=== PATIENT | female | born 1975 | race Caucasian/White ===

== ENCOUNTER → 2017-02-01 | Outpatient (CLI) | payer OTHER ==
--- NOTE | 2017-02-01 16:39 | PN ---
DATE OF SERVICE: 02/01/2017 41-year-old lady who has been followed in the sleep center for treatment of obstructive sleep apnea-hypopnea syndrome. Recently patient had some problem related to the pressure and she did not use machine for the last months. I reviewed results of her previous sleep studies and it was done about 2 years ago. At that time, the effective pressure at 9 cm of water was prescribed to the patient, but lower pressure like ( ) showed that it was effective. I checked patient's CPAP unit. [place] Sleepiness Scale today is 12. MEDICATIONS: Baclofen, amitriptyline, Fenofibrate, pravastatin, metformin, omeprazole, citalopram, Claritin, [place]. During physical exam, the patient in no distress. VITAL SIGNS: BP 152/92, HR 106, RR 16. Height 5 feet 4-1/2 inches. Weight 255. BMI 43. Temperature 98.0. Oxygen saturation at room air 97%. HEENT: PERRLA, EOMI, Evaluation of the oropharynx showed tongue protrudes midline. NECK: Supple. No JVD, Thyroid is not palpable. LUNGS: Clear to percussion and to auscultation. Good air exchange. No wheezing or rhonchi. HEART: S1, S2 regular. No murmurs, gallops, or rubs. ABDOMEN: Obese. Soft and nontender. Bowel sounds are present. No organomegaly appreciated. CODING QUALITY ANALYST: Awake, alert, and oriented x3. Cranial nerves 2 to 7 intact. There is no fasciculation or atrophy noted. No focal deficits observed. IMPRESSION: 1. Obstructive sleep apnea-hypopnea syndrome. Patient described that she has recent difficulties with the machine at the present pressure. 2. Obesity. Patient lost 5 pounds since previous visit. 3. Hyperlipidemia. 4. History of thyroid nodule. 5. History of migraines. 6. Diabetes mellitus. 7. Acid reflux. 8. Depression. 9. Allergies. 10. Back pain. PLAN: 1. Continue treatment with CPAP every night for the whole night. 2. I adjusted pressure in patient's CPAP unit down to 8 cm of water. 3. Patient promised to follow recommendations while using her CPAP. 4. A prescription for all necessary CPAP supplies. 5. Losing weight. 6. No driving if feeling any sleepiness. Thank you very much for allowing me to participate in the management of your patient. Sincerely, Yunior Jiménez MD, PhD, FAASM Diplomat of [employer], Sleep Medicine Board by [employer] [employer] [facility] [place]
== END | disposition home or self-care (01) ==
LOC: SLEEP 13:10
PROVIDERS: ATTEND Internal Medicine
DX: G47.33 Obstructive sleep apnea (adult) (pediatric) (principal); E66.9 Obesity, unspecified; Z68.41 Body mass index [BMI] 40.0-44.9, adult; F32.9 Major depressive disorder, single episode, unspecified; E78.5 Hyperlipidemia, unspecified; K21.9 Gastro-esophageal reflux disease without esophagitis; M54.9 Dorsalgia, unspecified; E11.9 Type 2 diabetes mellitus without complications; Z79.899 Other long term (current) drug therapy; Z91.09 Other allergy status, other than to drugs and biological substances; Z79.84 Long term (current) use of oral hypoglycemic drugs

== ENCOUNTER 2017-06-12 18:37 | Emergency (ER) | payer OTHER ==
[2017-06-12] MEDS ORDERED: ORPHENADRINE 30 MG/ML 2 ML VIAL IVP STA (19:23)
[2017-06-12] MEDS ORDERED: METOCLOPRAMIDE 5 MG/ML 2 ML VIAL IVP STA (19:23)
[2017-06-12] MEDS ORDERED: KETOROLAC 30 MG/ML 1 ML VIAL IVP STA (19:23)
[2017-06-12] MEDS ORDERED: SODIUM CHLORIDE 0.9% 1,000 ML IV ONE (19:23)
--- NOTE | 2017-06-12 19:30 | ED ---
Headache HPI - General Chief Complaint: Headache Stated Complaint: severe migraine Time Seen by Provider: 06/12/17 19:06 Source: patient, RN notes reviewed Mode of arrival: ambulatory Limitations: no limitations - History of Present Illness Initial Comments: 42-year-old female presents emergency Department chief complaint migraine headache. Patient has a history of migraines concerned with a migraine headache last night. Patient states that has not alleviated with her medications at home. Patient states she does have come the hospital often for her headaches. Patient states is a diffuse headache and she's had headaches like this in the past. She denies any focal weakness. Patient developed nausea vomiting today. Patient denies fever, chills, neck stiffness, chest pain or shortness breath. Patient states that she tried [place], ibuprofen and muscle relaxer earlier today with nothing recent. - Related Data Home Medications Medication Instructions Recorded Confirmed Baclofen [Lioresal] 10 - 20 mg PO BID PRN 03/06/14 06/12/17 Citalopram Hydrobromide [CeleXA] 40 mg PO DAILY 03/06/14 06/12/17 Fenofibrate [Lofibra] 160 mg PO DAILY 03/06/14 06/12/17 Levothyroxine Sodium [Levoxyl] 75 mcg PO DAILY 03/06/14 06/12/17 Loratadine [Claritin] 10 mg PO DAILY 07/05/15 06/12/17 Cholecalciferol [Vitamin D3] 5,000 unit PO DAILY 06/12/17 06/12/17 Ferrous Sulfate [Feosol] 325 mg PO DAILY 06/12/17 06/12/17 Ibuprofen [Motrin] 200 - 400 mg PO Q6HR PRN 06/12/17 06/12/17 L.acidoph,Paracasei, B.lactis 1 cap PO DAILY 06/12/17 06/12/17 [Probiotic] Omeprazole [PriLOSEC] 40 mg PO DAILY 06/12/17 06/12/17 Pravastatin Sodium [Pravachol] 10 mg PO HS 06/12/17 06/12/17 metFORMIN HCL [Glucophage] 500 mg PO BID 06/12/17 06/12/17 Allergies Allergy/AdvReac Type Severity Reaction Status Date / Time No Known Allergies Allergy Verified 06/12/17 19:52 Review of Systems ROS Statement: Those systems with pertinent positive or pertinent negative responses have been documented in the HPI. ROS Other: All systems not noted in ROS Statement are negative. Past Medical History Past Medical History: Asthma, Diabetes Mellitus, GERD/Reflux, Renal Disease, Sleep Apnea/CPAP/BIPAP, Thyroid Disorder Additional Past Medical History / Comment(s): Migraines; vertigo associated with migraines History of Any Multi-Drug Resistant Organisms: None Reported Past Surgical History: Section, Cholecystectomy, Hysterectomy Additional Past Surgical History / Comment(s): EGD which showed hiatal hernia, colonoscopy which was normal, 2 C-sections, bilateral oophorectomy Past Anesthesia/Blood Transfusion Reactions: No Reported Reaction Additional Past Anesthesia/Blood Transfusion Reaction / Comment(s): Pt has never had a blood transfusion. Past Psychological History: Anxiety, Depression Smoking Status: Former smoker Past Alcohol Use History: None Reported Past Drug Use History: None Reported - Past Family History Father Additional Family Medical History / Comment(s): Father had MV replacement. He has high triglycerides. His mother had breast cancer. Mother Family Medical History: Diabetes Mellitus Additional Family Medical History / Comment(s): Mother has anxiety. General Exam Limitations: no limitations General appearance: alert, in no apparent distress Head exam: Present: atraumatic, normocephalic, normal inspection Eye exam: Present: normal appearance, PERRL, EOMI. Absent: scleral icterus, conjunctival injection, periorbital swelling ENT exam: Present: normal exam, normal oropharynx, mucous membranes moist, TM's normal bilaterally, normal external ear exam Neck exam: Present: normal inspection, full ROM. Absent: tenderness, meningismus, lymphadenopathy Respiratory exam: Present: normal lung sounds bilaterally. Absent: respiratory distress, wheezes, rales, rhonchi, stridor Cardiovascular Exam: Present: regular rate, normal rhythm, normal heart sounds. Absent: systolic murmur, diastolic murmur, rubs, gallop, clicks Extremities exam: Present: normal inspection, full ROM, normal capillary refill. Absent: tenderness, pedal edema, joint swelling, calf tenderness Neurological exam: Present: alert, oriented X3, CN II-XII intact, reflexes normal. Absent: motor sensory deficit Skin exam: Present: warm, dry, intact, normal color. Absent: rash Course Vital Signs 06/12/17 18:46 Temperature 96.8 F L Pulse Rate 73 Respiratory 17 Rate Blood Pressure 122/81 O2 Sat by Pulse 97 Oximetry - Reevaluation(s) Reevaluation #1: 06/12/17 20:20 Patient was reevaluated at this time. Patient's headache has essentially resolved. Patient's neuro exam is within normal wants no acute abnormality's. Medical Decision Making - Medical Decision Making 42-year-old female presented emergency department for headache. Patient's headache has resolved as medications. Patient has a normal neuro exam. Patient will be discharged return parameters were discussed. Disposition Clinical Impression: Migraine Disposition: HOME SELF-CARE Condition: Stable Instructions: Acute Headache (ED) Additional Instructions: Please return to the Emergency Department if symptoms worsen or any other concerns. Referrals: Luca Chandler MD [Primary Care Provider] - 1-2 days Time of Disposition: 20:21
[2017-06-12 20:37] VITALS: BP 134/66; PULSE 71; RESP 16; TEMP 97.7
== END 2017-06-12 20:45 | disposition home or self-care (01) ==
LOC: EC 18:37
DX: G43.909 Migraine, unspecified, not intractable, without status migrainosus (principal); E11.9 Type 2 diabetes mellitus without complications; K21.9 Gastro-esophageal reflux disease without esophagitis; F41.9 Anxiety disorder, unspecified; E07.9 Disorder of thyroid, unspecified; F32.9 Major depressive disorder, single episode, unspecified; G47.30 Sleep apnea, unspecified; Z99.89 Dependence on other enabling machines and devices; Z87.891 Personal history of nicotine dependence; Z79.84 Long term (current) use of oral hypoglycemic drugs; Z79.899 Other long term (current) drug therapy
CPT/HCPCS: 99283; 96374; 96375 ×2; 96361; J2360; J2765; J1885

== ENCOUNTER 2017-07-10 07:28 | Day surgery (SDC) | payer OTHER ==
[2017-07-03 16:00] VITALS: BMI 44.9
[~2017-07-10 07:28] MED LIST: DEXAMETHASONE SOD PHOSPHATE 10 MG/ML 1 ML VIAL IV ONE; HEPARIN SODIUM,PORCINE 5,000 UNIT/ML 1 ML VIAL SQ ONE; HYDROmorphone 0.5 MG/0.5 ML SYRINGE IVP PRN; LACTATED RINGERS 1,000 ML IV SCH; MIDAZOLAM 2 MG/2 ML VIAL IV PRN; ONDANSETRON 4 MG/2 ML VIAL IVP ONE; Pre Op ABX Message 1 EACH MISC MISCELLANE ONE
[2017-07-10] MEDS ORDERED: LIDOCAINE 1% 20 ML VIAL (10MG/ML) FOR IV START INTRADERMA ONE (07:50)
[2017-07-10 07:54] VITALS: TEMP 97.7
[2017-07-10 07:56] LABS: Glucose,Whole Blood 119 mg/dL (75-99)
[2017-07-10] MEDS ORDERED: fentaNYL (PF) 50 MCG/ML 2 ML AMP IV ONE (08:08)
[2017-07-10] MEDS ORDERED: METOCLOPRAMIDE 5 MG/ML 2 ML VIAL IVP ONE (08:09)
[2017-07-10] MEDS ORDERED: PROPOFOL 10 MG/ML 20 ML VIAL IV ONE (08:38)
[2017-07-10] MEDS ORDERED: MIDAZOLAM 2 MG/2 ML VIAL ONE (08:38)
[2017-07-10] MEDS ORDERED: fentaNYL (PF) 50 MCG/ML 2 ML AMP ONE (08:38)
[2017-07-10] MEDS ORDERED: BUPIVACAIN-EPI 0.5%-1:200,000 30 ML VIAL SQ ONE ×2 (08:50)
[2017-07-10] MEDS ORDERED: SODIUM CHLORIDE 0.9% 50 ML with CLINDAMYCIN 900 MG IV ONE ×4 (08:54)
[2017-07-10 09:32] VITALS: PULSE 86; RESP 16
--- NOTE | 2017-07-10 09:39 | P.OP ---
Date of Procedure: 07/10/17 Preoperative Diagnosis: Right thigh sebaceous cyst Postoperative Diagnosis: Right thigh sebaceous cyst Procedure(s) Performed: Excision of right thigh sebaceous cyst Anesthesia: local Surgeon: Shawn Marlow Pathology: other Condition: stable Description of Procedure: Patient was seen and examined the preop holding area and marked. Questions were answered and informed consent obtained. She was taken to the operating room and placed in supine position and given IV sedation per anesthesia after appropriate timeout. . He was prepped and draped in the usual sterile surgical fashion after infiltrating local anesthesia and incision was made that was elliptical across the cyst in the lines of [place]. Given the skin and subcutaneous tissue with the electrocautery completed shelling out the cyst. This is measured 2 x 2 by 1.5 cm and extended it is into the subcutaneous tissue. Subcu tissue was closed with a single stitch of 3-0 Vicryl. Skin was closed 4-0 Monocryl and Dermabond was applied patient WELL and was taken to recovery in stable condition after she woke up. There were complications
[2017-07-10 09:42] LABS: Glucose,Whole Blood 161 mg/dL (75-99)
[2017-07-10 10:13] VITALS: BP 129/77
== END 2017-07-10 10:16 | disposition home or self-care (01) ==
LOC: OR 07:28
PROVIDERS: ATTEND Surgery
DX: D23.9 Other benign neoplasm of skin, unspecified (principal); Z79.84 Long term (current) use of oral hypoglycemic drugs; E11.9 Type 2 diabetes mellitus without complications; E03.9 Hypothyroidism, unspecified; Z68.42 Body mass index [BMI] 45.0-49.9, adult; E66.9 Obesity, unspecified; Z87.891 Personal history of nicotine dependence; F32.9 Major depressive disorder, single episode, unspecified; E78.5 Hyperlipidemia, unspecified; Z79.899 Other long term (current) drug therapy; Z88.8 Allergy status to other drugs, medicaments and biological substances
CPT/HCPCS: 11403; 88305; J2250; J1644; J1100; J2765; J3010; J2704

== ENCOUNTER 2018-08-12 21:03 | Observation (INO) | payer OTHER ==
[2018-08-12] MEDS ORDERED: MORPHINE SULFATE 4 MG/ML SYRINGE IVP STA (22:45)
[2018-08-12 23:09] LABS: Basophils # (A) 0.1 k/uL (0-0.2); Basophils % (A) 1 %; Eosinophils # (A) 0.2 k/uL (0-0.7); Eosinophils % (A) 2 %; HCT 34.3 % (34.0-46.0); HGB 11.7 gm/dL (11.4-16.0); Lymphocytes # (A) 2.4 k/uL (1.0-4.8); Lymphocytes % (A) 25 %; MCH 29.7 pg (25.0-35.0); MCHC 34.2 g/dL (31.0-37.0); MCV 86.9 fL (80.0-100.0); Mean Platelet Volume 7.9; Monocytes # (A) 0.5 k/uL (0-1.0); Monocytes % (A) 5 %; Neutrophils # (A) 6.2 k/uL (1.3-7.7); Neutrophils % (A) 66 %; Platelet Count 243 k/uL (150-450); Poikilocytosis Slight; RBC 3.95 m/uL (3.80-5.40); RDW 14.2 % (11.5-15.5); WBC 9.5 k/uL (3.8-10.6)
[2018-08-12 23:19] LABS: Amorphous Sediment,Urine Rare /hpf; Appearance,Urine Cloudy (Clear); Bacteria,Urine Rare /hpf; Bilirubin,Urine Negative (Negative); Blood,Urine Moderate (Negative); Color,Urine Yellow; Glucose,Urine (UA) Negative (Negative); Ketones,Urine Negative (Negative); Leukocyte Esterase,Urine Negative (Negative); Mucus,Urine Rare /hpf; Nitrite,Urine Negative (Negative); PH, Urine 6.5 (5.0-8.0); Protein,Urine Negative (Negative); RBC,Urine 13 /hpf (0-5); Specific Gravity,Urine 1.015 (1.001-1.035); Squamous Epithelial Cell,Urine 5 /hpf (0-4); WBC,Urine 3 /hpf (0-5)
[2018-08-12 23:20] LABS: Calcium 9.6 mg/dL (8.4-10.2); Potassium 4.3 mmol/L (3.5-5.1); Total Bilirubin 0.6 mg/dL (0.2-1.3); Total Protein 7.3 g/dL (6.3-8.2)
--- NOTE | 2018-08-12 23:26 | ED ---
Abdominal Pain HPI - General Chief Complaint: Abdominal Pain Stated Complaint: kidney stone pain Time Seen by Provider: 08/12/18 22:17 Source: patient Mode of arrival: ambulatory Limitations: no limitations - History of Present Illness Initial Comments: And she is a 43-year-old female who returns to the ER today for reevaluation of right-sided flank pain. Patient was seen and evaluated on emergency department last week and diagnosed with a 5-5-1/2 mm right ureteral stone. Patient mild hydronephrosis at that time, she was discharged home on Flomax and [place]. Patient reports she's been compliant with his medications but has persistent pain and associated nausea despite taking Zofran. Patient was seen by her primary care today and received IM injection of Toradol. She reports that after injection she was able to sleep for approximately 2 hours with the pain persisted and she was advised to come to the ER for any persistence or worsening of pain. Patient name fevers, chills, vomiting, chest pain or shortness of breath. She denies any gross hematuria or foul odor to the urine. She describes her pain as an 8 out of 10 in intensity stabbing and radiating from the right lower pelvis and of the flank. - Related Data Home Medications Medication Instructions Recorded Confirmed Baclofen [Lioresal] 10 - 20 mg PO BID PRN 03/06/14 08/09/18 Citalopram Hydrobromide [CeleXA] 40 mg PO DAILY 03/06/14 08/09/18 Fenofibrate [Lofibra] 160 mg PO HS 03/06/14 08/09/18 Levothyroxine Sodium [Levoxyl] 75 mcg PO DAILY 03/06/14 08/09/18 Loratadine [Claritin] 10 mg PO DAILY 07/05/15 08/09/18 Omeprazole [PriLOSEC] 20 mg PO DAILY 06/12/17 08/09/18 Cholecalciferol (Vitamin D3) 10,000 unit PO DAILY 08/09/18 08/09/18 [Vitamin D3] Topiramate [Topamax] 100 mg PO DAILY PRN 08/09/18 08/09/18 Topiramate [Topamax] 100 mg PO HS 08/09/18 08/09/18 Previous Rx's Medication Instructions Recorded Hydrocodone/Acetaminophen [[place] 1 tab PO Q6HR PRN #12 tab 08/09/18 5-325] Ketorolac [Toradol] 10 mg PO Q8HR #15 tab 08/09/18 Metoclopramide [Reglan] 10 mg PO TID PRN #15 tab 08/09/18 Tamsulosin [Flomax] 0.4 mg PO DAILY #7 cap 08/09/18 Allergies Allergy/AdvReac Type Severity Reaction Status Date / Time niacin Allergy red and Verified 08/12/18 21:20 hot skin ondansetron [From Zofran] Allergy Unknown Verified 08/12/18 21:20 Review of Systems ROS Statement: Those systems with pertinent positive or pertinent negative responses have been documented in the HPI. ROS Other: All systems not noted in ROS Statement are negative. Past Medical History Past Medical History: Asthma, Diabetes Mellitus, Fibromyalgia, GERD/Reflux, Hyperlipidemia, Sleep Apnea/CPAP/BIPAP, Thyroid Disorder Additional Past Medical History / Comment(s): Migraines; vertigo associated with migraines, hiatal hernia, History of Any Multi-Drug Resistant Organisms: None Reported Past Surgical History: Section, Cholecystectomy, Hysterectomy, Uterine Ablation Additional Past Surgical History / Comment(s): bilateral oophorectomy Past Anesthesia/Blood Transfusion Reactions: Motion Sickness Additional Past Anesthesia/Blood Transfusion Reaction / Comment(s): . Past Psychological History: Depression Smoking Status: Former smoker Past Alcohol Use History: Rare Past Drug Use History: None Reported - Past Family History Father Additional Family Medical History / Comment(s): Father had MV replacement. He has high triglycerides. His mother had breast cancer. Mother Family Medical History: No Reported History Additional Family Medical History / Comment(s): Mother has anxiety. General Exam - General Exam Comments Initial Comments: Physical Exam GENERAL: Patient is well-developed and well-nourished. Patient is nontoxic and well- hydrated and is in no distress. HENT: Normocephalic, Atraumatic. EYES: PERRL, EOMI PULMONARY: Unlabored respirations. No audible rales rhonchi or wheezing was noted. CARDIOVASCULAR: There is a regular rate and rhythm without any murmurs gallops or rubs. ABDOMEN: Soft and nontender with normal bowel sounds. Right-sided flank pain SKIN: Skin is clear with no lesions or rashes and otherwise unremarkable. : Deferred NEUROLOGIC: Patient is alert and oriented x3. Moving all extremities spontaneously MUSCULOSKELETAL: Normal extremities with adequate strength and full range of motion. No lower extremity swelling or edema. No calf tenderness. PSYCHIATRIC: Normal psychiatric evaluation. Limitations: no limitations Limitations: no limitations Course Vital Signs 08/12/18 08/13/18 21:17 00:25 Temperature 98.1 F Pulse Rate 71 60 Respiratory 18 19 Rate Blood Pressure 111/71 114/56 O2 Sat by Pulse 98 100 Oximetry Medical Decision Making - Medical Decision Making The patient was seen and evaluated history is obtained from the patient and review of medical record This is a patient with a known 5 mm midureteral stone returning to the ER for pain that is not managed by by mouth medications as well as IM Toradol. Patient does have associated nausea but no vomiting, she has been tolerating her home medications. Labs and imaging were ordered, at this time I don't feel there is any indication for repeat computed tomography scan I will pursue a ultrasound Labs reveal an acute kidney injury with an increased creatinine nearly double her baseline as well as increased BUN Urinalysis with no signs of infection, gross hematuria noted Ultrasound does reveal mild hydronephrosis not significantly worsened previous Patient with transient improvement in her pain with morphine. Requesting repeat doses again stating her pain is an 8 out of 10 Patient care was discussed with Dr. Moscoso urology on-call who agrees with the plan for admission for pain management. - Lab Data Result diagrams: 08/12/18 22:45 08/12/18 22:45 Lab Results 08/12/18 08/12/18 08/12/18 Range/Units 22:45 22:45 22:45 WBC 9.5 (3.8-10.6) k/uL RBC 3.95 (3.80-5.40) m/uL Hgb 11.7 (11.4-16.0) gm/dL Hct 34.3 (34.0-46.0) % MCV 86.9 (80.0-100.0) fL MCH 29.7 (25.0-35.0) pg MCHC 34.2 (31.0-37.0) g/dL RDW 14.2 (11.5-15.5) % Plt Count 243 (150-450) k/uL Neutrophils % 66 % Lymphocytes % 25 % Monocytes % 5 % Eosinophils % 2 % Basophils % 1 % Neutrophils # 6.2 (1.3-7.7) k/uL Lymphocytes # 2.4 (1.0-4.8) k/uL Monocytes # 0.5 (0-1.0) k/uL Eosinophils # 0.2 (0-0.7) k/uL Basophils # 0.1 (0-0.2) k/uL Poikilocytosis Slight Sodium 142 (137-145) mmol/L Potassium 4.3 (3.5-5.1) mmol/L Chloride 109 H (98-107) mmol/L Carbon Dioxide 24 (22-30) mmol/L Anion Gap 9 mmol/L BUN 30 H (7-17) mg/dL Creatinine 1.14 H (0.52-1.04) mg/dL Est GFR (CKD-EPI)AfAm 68 (>60 ml/min/1.73 sqM) Est GFR (CKD-EPI)NonAf 59 (>60 ml/min/1.73 sqM) Glucose 89 (74-99) mg/dL Calcium 9.6 (8.4-10.2) mg/dL Total Bilirubin 0.6 (0.2-1.3) mg/dL AST 39 H (14-36) U/L ALT 59 H (9-52) U/L Alkaline Phosphatase 79 (38-126) U/L Total Protein 7.3 (6.3-8.2) g/dL Albumin 4.0 (3.5-5.0) g/dL Lipase 47 (23-300) U/L Urine Color Yellow Urine Appearance Cloudy H (Clear) Urine pH 6.5 (5.0-8.0) Ur Specific [place] 1.015 (1.001-1.035) Urine Protein Negative (Negative) Urine Glucose (UA) Negative (Negative) Urine Ketones Negative (Negative) Urine Blood Moderate H (Negative) Urine Nitrite Negative (Negative) Urine Bilirubin Negative (Negative) Urine Urobilinogen 2.0 (<2.0) mg/dL Ur Leukocyte Esterase Negative (Negative) Urine RBC 13 H (0-5) /hpf Urine WBC 3 (0-5) /hpf Ur Squamous Epith Cells 5 H (0-4) /hpf Amorphous Sediment Rare H (None) /hpf Urine Bacteria Rare H (None) /hpf Urine Mucus Rare H (None) /hpf Disposition Clinical Impression: Urinary tract obstruction by kidney stone, Flank pain Disposition: ADMITTED IP TO THIS HOSP Condition: Stable Referrals: Luca Chandler MD [Primary Care Provider] - 1-2 days
[2018-08-12] MEDS ORDERED: SODIUM CHLORIDE 0.9% 1,000 ML IV ONE (23:38)
--- NOTE | 2018-08-12 23:38 | XR ---
EXAMINATION TYPE: XR KUB DATE OF EXAM: 08/12/2018 COMPARISON: 08/09/2018 HISTORY: Right lower quadrant pain TECHNIQUE: 2 views upright FINDINGS: There are clips from cholecystectomy. There is no sign of intestinal obstruction or pneumop eritoneum. Fecal pattern is normal. Lung bases are clear. IMPRESSION: Nonacute abdomen. No change.
--- NOTE | 2018-08-13 00:44 | US ---
EXAMINATION TYPE: US kidneys/renal and bladder DATE OF EXAM: 08/13/2018 COMPARISON: NONE CLINICAL HISTORY: Pain. Pain HX of kidney stones. EXAM MEASUREMENTS: Right Kidney: 11.1 x 6.4 5.8 cm Left Kidney: 12.7 x 5.3 x 4.9 cm Right Kidney: Echogenic foci seen with mild hydronephrosis. Left Kidney: Echogenic area seen mid pole no hydronephrosis seen. Bladder: Anechoic not fully distended. Bilateral Jets seen: Yes IMPRESSION: There is right-sided hydronephrosis. There are ureteral jets in the urinary bladder and I do not susp ect a significant obstruction. No renal atrophy. There are probably bilateral renal small calculi. Ri ght-sided hydronephrosis unchanged compared to CT scan 08/09/2018.
[2018-08-13] MEDS ORDERED: MORPHINE SULFATE 4 MG/ML SYRINGE IVP STA (01:39)
[2018-08-13] MEDS ORDERED: NALOXONE 0.4 MG/ML 1 ML VIAL IV PRN (02:08)
[2018-08-13] MEDS: SODIUM CHLORIDE 0.9% 1,000 ML IV SCH ×2 (02:38→12:41)
[2018-08-13] MEDS: MORPHINE SULFATE 4 MG/ML SYRINGE IV PRN ×2 (04:55→09:28)
[2018-08-13] MEDS ORDERED: LEVOTHYROXINE 75 MCG TAB PO SCH (06:30)
--- NOTE | 2018-08-13 07:22 | P.GSHP ---
History of Present Illness H&P Date: 08/13/18 The patient is a 43-year-old female who since last has been having problems with a right ureteral stone. She was in the emergency room last weekend where a 5-6 mm midureteral stone was identified. The pain persisted and she came back to the emergency room last night. The pain was not controlled so she was admitted to the hospital. She is still having pain this morning. She did have a stone many years ago. The computed tomography scan also shows a right and left renal stone both small. Her some mild hydronephrosis. Urine is not infected. There is no fever or chills. - Constitutional Constitutional: Reports chronic headaches - Genitourinary (Female) Genitourinary: Reports as per HPI Past Medical History Past Medical History: Asthma, Diabetes Mellitus, Fibromyalgia, GERD/Reflux, Hyperlipidemia, Sleep Apnea/CPAP/BIPAP, Thyroid Disorder Additional Past Medical History / Comment(s): Migraines; vertigo associated with migraines, hiatal hernia, History of Any Multi-Drug Resistant Organisms: None Reported Past Surgical History: Section, Cholecystectomy, Hysterectomy, Uterine Ablation Additional Past Surgical History / Comment(s): bilateral oophorectomy Past Anesthesia/Blood Transfusion Reactions: Motion Sickness Additional Past Anesthesia/Blood Transfusion Reaction / Comment(s): . Past Psychological History: Depression Additional Psychological History / Comment(s): . Smoking Status: Former smoker Past Alcohol Use History: Rare Additional Past Alcohol Use History / Comment(s): quit smoking 1994, smoked for 5 yrs, 1 PPD Past Drug Use History: None Reported - Past Family History Father Additional Family Medical History / Comment(s): Father had MV replacement. He has high triglycerides. His mother had breast cancer. Mother Family Medical History: No Reported History Additional Family Medical History / Comment(s): Mother has anxiety. Medications and Allergies Home Medications Medication Instructions Recorded Confirmed Type Baclofen [Lioresal] 10 - 20 mg PO BID PRN 03/06/14 08/13/18 History Citalopram Hydrobromide [CeleXA] 20 mg PO DAILY 03/06/14 08/13/18 History Fenofibrate [Lofibra] 160 mg PO HS 03/06/14 08/13/18 History Levothyroxine Sodium [Levoxyl] 75 mcg PO DAILY 03/06/14 08/13/18 History Omeprazole [PriLOSEC] 20 mg PO DAILY 06/12/17 08/13/18 History Cholecalciferol (Vitamin D3) 10,000 unit PO DAILY 08/09/18 08/13/18 History [Vitamin D3] Tamsulosin [Flomax] 0.4 mg PO DAILY #7 cap 08/09/18 08/13/18 Rx Topiramate [Topamax] 100 mg PO DAILY PRN 08/09/18 08/13/18 History Topiramate [Topamax] 100 mg PO HS 08/09/18 08/13/18 History Allergies Allergy/AdvReac Type Severity Reaction Status Date / Time niacin Allergy red and Verified 08/12/18 21:20 hot skin ondansetron [From Zofran] Allergy Unknown Verified 08/12/18 21:20 Surgical - Exam Vital Signs Temp Pulse Resp BP Pulse Ox 98.1 F 71 18 111/71 98 08/12/18 21:17 08/12/18 21:17 08/12/18 21:17 08/12/18 21:17 08/12/18 21:17 - General well developed, well nourished, obese - Eyes PERRL - ENT no hearing loss - Neck no masses, trachea midline - Respiratory normal expansion, normal respiratory effort - Cardiovascular Rhythm: regular - Abdomen Abdomen: tender - Integumentary no rash, no growths - Neurologic normal coordination, normal sensation - Musculoskeletal normal posture - Psychiatric oriented to time, oriented to person, oriented to place, speech is normal, memory intact Results - Labs 08/12/18 22:45 08/12/18 22:45 Abnormal Lab Results - Last 24 Hours (Table) 08/12/18 08/12/18 Range/Units 22:45 22:45 Chloride 109 H (98-107) mmol/L BUN 30 H (7-17) mg/dL Creatinine 1.14 H (0.52-1.04) mg/dL AST 39 H (14-36) U/L ALT 59 H (9-52) U/L Urine Appearance Cloudy H (Clear) Urine Blood Moderate H (Negative) Urine RBC 13 H (0-5) /hpf Ur Squamous Epith Cells 5 H (0-4) /hpf Amorphous Sediment Rare H (None) /hpf Urine Bacteria Rare H (None) /hpf Urine Mucus Rare H (None) /hpf Diabetes panel 08/12/18 Range/Units 22:45 Sodium 142 (137-145) mmol/L Potassium 4.3 (3.5-5.1) mmol/L Chloride 109 H (98-107) mmol/L Carbon Dioxide 24 (22-30) mmol/L BUN 30 H (7-17) mg/dL Creatinine 1.14 H (0.52-1.04) mg/dL Glucose 89 (74-99) mg/dL Calcium 9.6 (8.4-10.2) mg/dL AST 39 H (14-36) U/L ALT 59 H (9-52) U/L Alkaline Phosphatase 79 (38-126) U/L Total Protein 7.3 (6.3-8.2) g/dL Albumin 4.0 (3.5-5.0) g/dL Calcium panel 08/12/18 Range/Units 22:45 Calcium 9.6 (8.4-10.2) mg/dL Albumin 4.0 (3.5-5.0) g/dL Pituitary panel 08/12/18 Range/Units 22:45 Sodium 142 (137-145) mmol/L Potassium 4.3 (3.5-5.1) mmol/L Chloride 109 H (98-107) mmol/L Carbon Dioxide 24 (22-30) mmol/L BUN 30 H (7-17) mg/dL Creatinine 1.14 H (0.52-1.04) mg/dL Glucose 89 (74-99) mg/dL Calcium 9.6 (8.4-10.2) mg/dL Adrenal panel 08/12/18 Range/Units 22:45 Sodium 142 (137-145) mmol/L Potassium 4.3 (3.5-5.1) mmol/L Chloride 109 H (98-107) mmol/L Carbon Dioxide 24 (22-30) mmol/L BUN 30 H (7-17) mg/dL Creatinine 1.14 H (0.52-1.04) mg/dL Glucose 89 (74-99) mg/dL Calcium 9.6 (8.4-10.2) mg/dL Total Bilirubin 0.6 (0.2-1.3) mg/dL AST 39 H (14-36) U/L ALT 59 H (9-52) U/L Alkaline Phosphatase 79 (38-126) U/L Total Protein 7.3 (6.3-8.2) g/dL Albumin 4.0 (3.5-5.0) g/dL - Imaging CT scan - abdomen: report reviewed, image reviewed CT scan - pelvis: report reviewed, image reviewed Assessment and Plan Assessment: Impression: Right ureteral calculus of the obstruction and persistent pain. Chronic migraines, diabetes, reflux esophagitis, Recommendations: I discussed with the patient all the options including spontaneous passage in the variety of surgical approaches. The pain is bothersome enough that she wishes something to be done. She'll be set up for right ureteroscopy laser lithotripsy and probable stent. The risks and complications of an outlined. Be done later today.
[2018-08-13] MEDS ORDERED: TAMSULOSIN 0.4 MG CAP.ER.24H PO SCH (09:00)
[2018-08-13] MEDS ORDERED: IV FLUID CONTINUATION 900 ML IV ONE (14:21)
[2018-08-13] MEDS ORDERED: fentaNYL (PF) 50 MCG/ML 2 ML AMP IVP ONE (14:27)
[2018-08-13] MEDS ORDERED: DEXAMETHASONE SOD PHOS (MDV) 100 MG/10 ML VIAL ONE (15:00)
[2018-08-13] MEDS ORDERED: fentaNYL (PF) 50 MCG/ML 2 ML AMP ONE (15:00)
[2018-08-13] MEDS ORDERED: LIDOCAINE 1% INJ 10MG/ML (20 ML MDV) ONE (15:00)
[2018-08-13] MEDS ORDERED: MIDAZOLAM 2 MG/2 ML VIAL ONE (15:00)
[2018-08-13] MEDS ORDERED: PROPOFOL 10 MG/ML 20 ML VIAL IV ONE (15:00)
[2018-08-13] MEDS ORDERED: SUCCINYLCHOLINE CHLORIDE 100 MG/5 ML SYR IV ONE (15:00)
[2018-08-13] MEDS ORDERED: SODIUM CHLORIDE 0.9% 50 ML with ceFAZolin 2,000 MG IV ONE ×2 (15:12)
[2018-08-13] MEDS ORDERED: IOPAMIDOL-370 50ML BTL MISCELLANE ONE (15:21)
--- NOTE | 2018-08-13 15:48 | P.OP ---
Date of Procedure: 08/13/18 Preoperative Diagnosis: Right ureteral stone Postoperative Diagnosis: Same Procedure(s) Performed: Cystoscopy, right retrograde pyelogram, right ureteroscopy laser lithotripsy, 6 x 24 stent Anesthesia: LIZBETH Surgeon: Hima Miller Estimated Blood Loss (ml): 5 Pathology: other (Stone) Condition: stable Disposition: PACU Indications for Procedure: The patient is 43. For the last week she has been attempting to pass a ureteral stone. Lodged in the mid ureter and was admitted to the hospital for pain control. She is still having pain this morning and this afternoon and come for stone manipulation Description of Procedure: Patient is brought to the operating suite. She is given a successful general endotracheal anesthesia. She's placed lithotomy position with sterile prep and drape. A cystoscopy is performed. The the bladder mucosa is unremarkable. Ureteral orifices are normal. There is bloody discharge from the right ureteral orifice. Within a cone-tipped catheter right retrograde pyelogram performed. There is about an 8 mm stone in the distal ureter. I dilate the ureter with a cone-tipped catheter. I passed the semirigid scope up to the stone. With the 365 laser probe and 3-4 W of energy the stone was broken into multiple pieces and flushes out of the ureter. The ureters too edematous not to place a stent. An 035 wires and passed through the ureteroscope. Over the wires and passed a 6 x 24 double-J catheter that coils in the kidney and in the bladder. The bladder strain the stone fragments are removed and sent to pathology. The patient is awakened and returned recovery room in good condition. Blood loss minimal.
--- NOTE | 2018-08-13 15:49 | P.DS ---
Providers Date of admission: 08/13/18 02:08 Attending physician: Hima Miller Primary care physician: Luca Gregoryqvi [facility] Course: The patient has had about a week of kidney stone pain. She was admitted the hospital last night with kidney stone pain. Because of persistent right ureteral colic I elected to perform ureteroscopy and stone manipulation. She underwent this this afternoon without difficulty. A stent was placed due to ureteral edema. He'll remain in one week. Discharged home this afternoon and found the office next week for stent removal her condition is good. She has pain medicine at home. Patient Condition at Discharge: Good Plan - Discharge Summary New Discharge Prescriptions: No Action Baclofen [Lioresal] 10 - 20 mg PO BID PRN PRN Reason: Muscle Spasm Levothyroxine Sodium [Levoxyl] 75 mcg PO DAILY Fenofibrate [Lofibra] 160 mg PO HS Citalopram Hydrobromide [CeleXA] 20 mg PO DAILY Omeprazole [PriLOSEC] 20 mg PO DAILY Topiramate [Topamax] 100 mg PO HS Cholecalciferol (Vitamin D3) [Vitamin D3] 10,000 unit PO DAILY Topiramate [Topamax] 100 mg PO DAILY PRN PRN Reason: Migraine Headache Tamsulosin [Flomax] 0.4 mg PO DAILY #7 cap Metoclopramide HCl [Reglan] 10 mg PO TID Hydrocodone/Acetaminophen [[place] 5-325] 1 tab PO Q6H Cyanocobalamin (Vitamin B-12) [Vitamin B12] 2,500 mcg PO DAILY Ketorolac [Toradol] 10 mg PO Q8H Discharge Medication List Baclofen [Lioresal] 10 - 20 mg PO BID PRN 03/06/14 [History] Citalopram Hydrobromide [CeleXA] 20 mg PO DAILY 03/06/14 [History] Fenofibrate [Lofibra] 160 mg PO HS 03/06/14 [History] Levothyroxine Sodium [Levoxyl] 75 mcg PO DAILY 03/06/14 [History] Omeprazole [PriLOSEC] 20 mg PO DAILY 06/12/17 [History] Cholecalciferol (Vitamin D3) [Vitamin D3] 10,000 unit PO DAILY 08/09/18 [History ] Tamsulosin [Flomax] 0.4 mg PO DAILY #7 cap 08/09/18 [Rx] Topiramate [Topamax] 100 mg PO DAILY PRN 08/09/18 [History] Topiramate [Topamax] 100 mg PO HS 08/09/18 [History] Cyanocobalamin (Vitamin B-12) [Vitamin B12] 2,500 mcg PO DAILY 08/13/18 [History ] Hydrocodone/Acetaminophen [[place] 5-325] 1 tab PO Q6H 08/13/18 [History] Ketorolac [Toradol] 10 mg PO Q8H 08/13/18 [History] Metoclopramide HCl [Reglan] 10 mg PO TID 08/13/18 [History] Follow up Appointment(s)/Referral(s): Luca Chandler MD [Primary Care Provider] - 1 Week () Hima Miller MD [STAFF PHYSICIAN] - 1 Week (cysto and stent removal) Activity/Diet/Wound Care/Special Instructions: Normal activity, patient may return to work, patient has a double-J catheter Discharge Disposition: HOME SELF-CARE
[2018-08-13 16:09] LABS: Glucose,Whole Blood 108 mg/dL (75-99)
[2018-08-13] MEDS ORDERED: MORPHINE SULFATE 4 MG/ML SYRINGE IVP ONE (16:18)
[2018-08-13 17:51] VITALS: BP 103/70; PULSE 86; RESP 18; TEMP 97.7
--- NOTE | 2018-08-13 22:09 | FL ---
EXAMINATION TYPE: FL urography retrograde DATE OF EXAM: 08/13/2018 FLUOROSCOPY Fluoroscopy time of 30 seconds was used during urologic intervention with stent placement. 2 image/s document/s the procedure.
== END 2018-08-13 18:48 | disposition home or self-care (01) ==
LOC: EC 21:03 → INTOOBSV 08-13 02:08 → 4MS4W 08-13 02:08 → UNDODISIN 08-13 18:48
PROVIDERS: ADMIT Urology; ATTEND Urology
PROC: 0TC68ZZ Extirpation of Matter from Right Ureter, Via Natural or Artificial Opening Endoscopic (ICD-10-PCS; principal; 2018-08-13 15:00)
PROC: 0T768DZ Dilation of Right Ureter with Intraluminal Device, Via Natural or Artificial Opening Endoscopic (ICD-10-PCS; 2018-08-13 15:00)
PROC: BT1D1ZZ Fluoroscopy of Right Kidney, Ureter and Bladder using Low Osmolar Contrast (ICD-10-PCS; 2018-08-13 15:00)
DX: N13.2 Hydronephrosis with renal and ureteral calculous obstruction (principal); E11.9 Type 2 diabetes mellitus without complications; E78.5 Hyperlipidemia, unspecified; F32.9 Major depressive disorder, single episode, unspecified; G43.909 Migraine, unspecified, not intractable, without status migrainosus; G47.30 Sleep apnea, unspecified; Z99.89 Dependence on other enabling machines and devices; J45.909 Unspecified asthma, uncomplicated; K21.0 Gastro-esophageal reflux disease with esophagitis; K44.9 Diaphragmatic hernia without obstruction or gangrene; E07.9 Disorder of thyroid, unspecified; M79.7 Fibromyalgia; Z79.890 Hormone replacement therapy; Z79.899 Other long term (current) drug therapy; Z90.722 Acquired absence of ovaries, bilateral; Z90.49 Acquired absence of other specified parts of digestive tract; Z87.891 Personal history of nicotine dependence; Z90.710 Acquired absence of both cervix and uterus; Z88.8 Allergy status to other drugs, medicaments and biological substances; Z82.49 Family history of ischemic heart disease and other diseases of the circulatory system; Z80.3 Family history of malignant neoplasm of breast; Z81.8 Family history of other mental and behavioral disorders
CPT/HCPCS: 52356; 96376 ×2; 96361 ×3; 96374; 99285; 36415; 80053; 83690; 85025; 81001; 82365; 74420; 74018; 76770; G0378; C2625; C1758; C1769; J2250; J2270 ×2; J2001; J3010; J0690; J1100; J0330; J2704; Q9967

== ENCOUNTER 2020-02-22 18:24 | Emergency (ER) | payer OTHER ==
[2020-02-22 18:30] VITALS: RESP 18; TEMP 98.2
--- NOTE | 2020-02-22 18:43 | ED ---
General Adult HPI - General Chief complaint: Extremity Injury, Lower Stated complaint: Lower Leg pain Time Seen by Provider: 02/22/20 18:30 Source: patient, EMS Mode of arrival: EMS Limitations: physical limitation - History of Present Illness Initial comments: The patient is a 45-year-old female past history of diabetes, fibromyalgia and rheumatoid arthritis who presents to the emergency room in with reported bilateral lower extremity pain. States the pain is present from her knees to her feet. She describes it as a sharp, searing pain for which she gets recurrent episodes of the past couple of years. She states she only takes the medications that she has at home at her disposal for these episodes and she is able to get it under control. Symptoms only last a day or 2. States that this current episode started 3 days ago when she has been unable to get the pain control. She follows up with her neurologist Dr. Lozoya who is working towards diagnosis. She's never had to come into the emergency room for pain control before. She denies any paralysis in her lower extremities. No inability to ambulate. No lower extremity swelling. No history of any trauma. Denies any back pain. No fevers or chills. Denies history of intravenous drug use. No saddle anesthesia or bowel or bladder incontinence. States that she's had extensive workup for the symptoms and has been unable to come up with a diagnosis. There are no other alleviating, precipitating or modifying factors - Related Data Home Medications Medication Instructions Recorded Confirmed Baclofen [Lioresal] 10 - 20 mg PO BID PRN 03/06/14 08/13/18 Citalopram Hydrobromide [CeleXA] 20 mg PO DAILY 03/06/14 08/13/18 Fenofibrate [Lofibra] 160 mg PO HS 03/06/14 08/13/18 Levothyroxine Sodium [Levoxyl] 75 mcg PO DAILY 03/06/14 08/13/18 Omeprazole [PriLOSEC] 20 mg PO DAILY 06/12/17 08/13/18 Cholecalciferol (Vitamin D3) 10,000 unit PO DAILY 08/09/18 08/13/18 [Vitamin D3] Topiramate [Topamax] 100 mg PO DAILY PRN 08/09/18 08/13/18 Topiramate [Topamax] 100 mg PO HS 08/09/18 08/13/18 Cyanocobalamin (Vitamin B-12) 2,500 mcg PO DAILY 08/13/18 08/13/18 [Vitamin B12] Hydrocodone/Acetaminophen [[place] 1 tab PO Q6H 08/13/18 08/13/18 5-325] Ketorolac [Toradol] 10 mg PO Q8H 08/13/18 08/13/18 Metoclopramide HCl [Reglan] 10 mg PO TID 08/13/18 08/13/18 Previous Rx's Medication Instructions Recorded Tamsulosin [Flomax] 0.4 mg PO DAILY #7 cap 08/09/18 Allergies Allergy/AdvReac Type Severity Reaction Status Date / Time niacin Allergy red and Verified 08/13/18 08:14 hot skin ondansetron [From Zofran] AdvReac MIGRAINE Verified 08/13/18 08:14 Review of Systems ROS Statement: Those systems with pertinent positive or pertinent negative responses have been documented in the HPI. ROS Other: All systems not noted in ROS Statement are negative. Past Medical History Past Medical History: Asthma, Diabetes Mellitus, Fibromyalgia, GERD/Reflux, Hyperlipidemia, Rheumatoid Arthritis (RA), Sleep Apnea/CPAP/BIPAP, Thyroid Disorder Additional Past Medical History / Comment(s): Migraines; vertigo associated with migraines, hiatal hernia, History of Any Multi-Drug Resistant Organisms: None Reported Past Surgical History: Section, Cholecystectomy, Hysterectomy, Uterine Ablation Additional Past Surgical History / Comment(s): bilateral oophorectomy Past Anesthesia/Blood Transfusion Reactions: Motion Sickness Additional Past Anesthesia/Blood Transfusion Reaction / Comment(s): . Past Psychological History: Depression Smoking Status: Former smoker Past Alcohol Use History: Rare Past Drug Use History: None Reported - Past Family History Father Additional Family Medical History / Comment(s): Father had MV replacement. He has high triglycerides. His mother had breast cancer. Mother Family Medical History: No Reported History Additional Family Medical History / Comment(s): Mother has anxiety. General Exam Limitations: no limitations General appearance: alert, in no apparent distress Head exam: Present: atraumatic, normocephalic, normal inspection Eye exam: Present: normal appearance, PERRL, EOMI. Absent: scleral icterus, conjunctival injection, periorbital swelling ENT exam: Present: normal exam, mucous membranes moist Neck exam: Present: normal inspection. Absent: tenderness, meningismus, lymphadenopathy Respiratory exam: Present: normal lung sounds bilaterally. Absent: respiratory distress, wheezes, rales, rhonchi, stridor Cardiovascular Exam: Present: regular rate, normal rhythm, normal heart sounds. Absent: systolic murmur, diastolic murmur, rubs, gallop, clicks GI/Abdominal exam: Present: soft, normal bowel sounds. Absent: distended, tenderness, guarding, rebound, rigid Extremities exam: Present: normal inspection, full ROM, tenderness, normal capillary refill, other (tenderness to palpation over the dorsal, medial and lateral bilateral lower extremities to light touch. Compartments are soft. 2+ DP and PT pulses. 5/5 muscle strength in the bilateral lower extremities to include hip flexors, knee extensors, ankle and great toe dorsiflexors and foot plantarflexors. Cap refill <3 seconds. ). Absent: pedal edema, joint swelling Back exam: Present: normal inspection Neurological exam: Present: alert, oriented X3, CN II-XII intact Psychiatric exam: Present: normal affect, normal mood Skin exam: Present: warm, dry, intact, normal color. Absent: rash Course Vital Signs 02/22/20 02/22/20 02/22/20 18:25 19:25 20:26 Temperature 98.2 F 98.2 F Pulse Rate 81 77 76 Respiratory 18 18 18 Rate Blood Pressure 120/81 118/67 113/71 O2 Sat by Pulse 97 98 96 Oximetry Medical Decision Making - Medical Decision Making Upon arrival the patient's placed into room 8. A thorough history and physical exam was performed. Patient has intact pulses in the lower externally. Compartment are soft. No back or flank pain. Patient is able to cannulate the bathroom without difficulty. She is requesting something stronger for pain control. Patient was given a dose of morphine. I did recommend repeating laboratory studies. No leukocytosis. Magnesium mildly low at 1.8. I did replace this for the patient. The patient was reevaluated and has improvement in her pain. I discussed diagnosis, differential treatment options. Patient has no signs of cauda equina. No notable vascular insufficiency in the lower extremities or concern for compartment syndrome. Patient is ambulatory without difficulty. At this time and did recommend that she be discharged with follow- up with her neurologist for continued evaluation of her chronic symptoms. The patient understood this. If she has any new or worsening symptoms she should return to the emergency room. Patient was in agreement with the plan she is discharged home in stable condition - Lab Data Result diagrams: 02/22/20 19:20 02/22/20 19:20 Lab Results 02/22/20 02/22/20 02/22/20 Range/Units 19:20 19:20 19:20 WBC 8.6 (3.8-10.6) k/uL RBC 4.14 (3.80-5.40) m/uL Hgb 13.6 (11.4-16.0) gm/dL Hct 37.6 (34.0-46.0) % MCV 90.9 (80.0-100.0) fL MCH 32.9 (25.0-35.0) pg MCHC 36.2 (31.0-37.0) g/dL RDW 13.5 (11.5-15.5) % Plt Count 260 (150-450) k/uL Neutrophils % 59 % Lymphocytes % 33 % Monocytes % 4 % Eosinophils % 3 % Basophils % 1 % Neutrophils # 5.1 (1.3-7.7) k/uL Lymphocytes # 2.8 (1.0-4.8) k/uL Monocytes # 0.3 (0-1.0) k/uL Eosinophils # 0.2 (0-0.7) k/uL Basophils # 0.0 (0-0.2) k/uL PT 9.9 (9.0-12.0) sec INR 0.9 (<1.2) APTT 24.5 (22.0-30.0) sec Sodium 137 (137-145) mmol/L Potassium 4.4 (3.5-5.1) mmol/L Chloride 106 (98-107) mmol/L Carbon Dioxide 22 (22-30) mmol/L Anion Gap 9 mmol/L BUN 18 H (7-17) mg/dL Creatinine 0.60 (0.52-1.04) mg/dL Est GFR (CKD-EPI)AfAm >90 (>60 ml/min/1.73 sqM) Est GFR (CKD-EPI)NonAf >90 (>60 ml/min/1.73 sqM) Glucose 180 H (74-99) mg/dL Calcium 9.1 (8.4-10.2) mg/dL Magnesium 1.8 (1.6-2.3) mg/dL Total Bilirubin 0.7 (0.2-1.3) mg/dL AST 41 H (14-36) U/L ALT 41 H (4-34) U/L Alkaline Phosphatase 60 (38-126) U/L Total Protein 7.9 (6.3-8.2) g/dL Albumin 4.4 (3.5-5.0) g/dL Disposition Clinical Impression: Bilateral leg pain Disposition: HOME SELF-CARE Condition: Stable Instructions (If sedation given, give patient instructions): Peripheral Neuropathy (ED) Additional Instructions: Please follow-up with [facility] and your neurologist in regards to her symptoms. Return to the emergency room for any new or worsening symptoms Is patient prescribed a controlled substance at d/c from ED?: No Referrals: More Jennings MD [Primary Care Provider] - 1-2 days Time of Disposition: 20:14
[2020-02-22] MEDS ORDERED: MORPHINE SULFATE 4 MG/ML SYRINGE IVP STA (19:01)
[2020-02-22 19:33] LABS: Basophils % (A) 1 %; Eosinophils # (A) 0.2 k/uL (0-0.7); Eosinophils % (A) 3 %; HCT 37.6 % (34.0-46.0); HGB 13.6 gm/dL (11.4-16.0); Lymphocytes # (A) 2.8 k/uL (1.0-4.8); Lymphocytes % (A) 33 %; MCH 32.9 pg (25.0-35.0); MCHC 36.2 g/dL (31.0-37.0); MCV 90.9 fL (80.0-100.0); Mean Platelet Volume 7.8; Monocytes # (A) 0.3 k/uL (0-1.0); Monocytes % (A) 4 %; Neutrophils # (A) 5.1 k/uL (1.3-7.7); Neutrophils % (A) 59 %; Platelet Count 260 k/uL (150-450); RBC 4.14 m/uL (3.80-5.40); RDW 13.5 % (11.5-15.5); WBC 8.6 k/uL (3.8-10.6)
[2020-02-22 19:43] LABS: ALT 41 U/L (4-34); AST 41 U/L (14-36); African American GFR (CKD) >90 (>60 ml/min/1.73 sqM); Albumin 4.4 g/dL (3.5-5.0); Alkaline Phosphatase 60 U/L (38-126); Anion Gap 9 mmol/L; Blood Urea Nitrogen 18 mg/dL (7-17); Calcium 9.1 mg/dL (8.4-10.2); Carbon Dioxide 22 mmol/L (22-30); Chloride 106 mmol/L (98-107); Glucose 180 mg/dL (74-99); Magnesium 1.8 mg/dL (1.6-2.3); Non-African American GFR(CKD) >90 (>60 ml/min/1.73 sqM); Potassium 4.4 mmol/L (3.5-5.1); Sodium 137 mmol/L (137-145); Total Bilirubin 0.7 mg/dL (0.2-1.3); Total Protein 7.9 g/dL (6.3-8.2)
[2020-02-22 19:44] LABS: INR 0.9 (<1.2); Partial Thromboplastin Time 24.5 sec (22.0-30.0); Prothrombin Time 9.9 sec (9.0-12.0)
[2020-02-22] MEDS ORDERED: MAGNESIUM OXIDE 400 MG TAB PO STA (19:59)
[2020-02-22 20:28] VITALS: BP 113/71; PULSE 76
== END 2020-02-22 20:28 | disposition home or self-care (01) ==
LOC: EC 18:24
DX: M79.661 Pain in right lower leg (principal); M79.662 Pain in left lower leg; E11.9 Type 2 diabetes mellitus without complications; F32.9 Major depressive disorder, single episode, unspecified; M79.7 Fibromyalgia; K21.9 Gastro-esophageal reflux disease without esophagitis; E78.5 Hyperlipidemia, unspecified; M06.9 Rheumatoid arthritis, unspecified; G47.30 Sleep apnea, unspecified; G43.909 Migraine, unspecified, not intractable, without status migrainosus; Z79.891 Long term (current) use of opiate analgesic; Z79.84 Long term (current) use of oral hypoglycemic drugs; Z79.1 Long term (current) use of non-steroidal anti-inflammatories (NSAID); Z79.890 Hormone replacement therapy; Z79.899 Other long term (current) drug therapy; Z99.89 Dependence on other enabling machines and devices; Z87.891 Personal history of nicotine dependence; Z88.1 Allergy status to other antibiotic agents; Z88.8 Allergy status to other drugs, medicaments and biological substances
CPT/HCPCS: 99283; 96374; 36415; 80053; 83735; 85025; 85610; 85730; J2270

== ENCOUNTER 2020-08-26 15:35 | Observation (INO) | payer OTHER ==
[2020-08-26 16:22] LABS: Basophils # (A) 0.1 k/uL (0-0.2); Basophils % (A) 1 %; Eosinophils # (A) 0.2 k/uL (0-0.7); Eosinophils % (A) 2 %; HCT 39.7 % (34.0-46.0); HGB 14.1 gm/dL (11.4-16.0); Hyperchromasia Slight; Lymphocytes # (A) 2.9 k/uL (1.0-4.8); Lymphocytes % (A) 30 %; MCHC 35.6 g/dL (31.0-37.0); Mean Platelet Volume 7.2; Monocytes # (A) 0.4 k/uL (0-1.0); Monocytes % (A) 4 %; Neutrophils # (A) 6.2 k/uL (1.3-7.7); Neutrophils % (A) 63 %; Platelet Count 264 k/uL (150-450); Poikilocytosis Slight; RBC 4.56 m/uL (3.80-5.40); RDW 13.9 % (11.5-15.5); WBC 9.8 k/uL (3.8-10.6)
--- NOTE | 2020-08-26 16:30 | ED ---
General Adult HPI - General Chief complaint: Chest Pain Stated complaint: chest pain Time Seen by Provider: 08/26/20 15:36 Source: patient, EMS Mode of arrival: EMS Limitations: no limitations - History of Present Illness Initial comments: 45-year-old female patient with past medical history significant for diabetes, asthma, high cholesterol, rheumatoid arthritis, migraines, and chronic pain presents to the emergency department today for evaluation presents to the emergency department today for evaluation of chest pain. Patient states that around 1:00 this afternoon she developed some substernal chest pain radiating to the left shoulder and into the left upper arm. States she does have some nausea and shortness of breath but this is not unusual for her with her chronic conditions. Patient was at her primary care physician's office today did have an abnormal EKGs and he wanted to come over for further evaluation. States she does have a history of heart murmur. Family history of mitral valve dysfunction. Denies history of smoking or alcohol use. Patient is currently being evaluated for a new tremor that started a couple of weeks ago. Patient denies any recent rash, fever, chills, cough, abdominal pain, diarrhea, constipation, back pain, numbness, tingling, dizziness, weakness, hematuria, dysuria, urinary urgency, urinary frequency, headache, visual changes, or any other complaints. - Related Data Home Medications Medication Instructions Recorded Confirmed Baclofen [Lioresal] 10 - 20 mg PO BID PRN 03/06/14 08/13/18 Citalopram Hydrobromide [CeleXA] 20 mg PO DAILY 03/06/14 08/13/18 Fenofibrate [Lofibra] 160 mg PO HS 03/06/14 08/13/18 Levothyroxine Sodium [Levoxyl] 75 mcg PO DAILY 03/06/14 08/13/18 Omeprazole [PriLOSEC] 20 mg PO DAILY 06/12/17 08/13/18 Cholecalciferol (Vitamin D3) 10,000 unit PO DAILY 08/09/18 08/13/18 [Vitamin D3] Topiramate [Topamax] 100 mg PO DAILY PRN 08/09/18 08/13/18 Topiramate [Topamax] 100 mg PO HS 08/09/18 08/13/18 Cyanocobalamin (Vitamin B-12) 2,500 mcg PO DAILY 08/13/18 08/13/18 [Vitamin B12] Hydrocodone/Acetaminophen [[place] 1 tab PO Q6H 08/13/18 08/13/18 5-325] Ketorolac [Toradol] 10 mg PO Q8H 08/13/18 08/13/18 Metoclopramide HCl [Reglan] 10 mg PO TID 08/13/18 08/13/18 Previous Rx's Medication Instructions Recorded Tamsulosin [Flomax] 0.4 mg PO DAILY #7 cap 08/09/18 Allergies Allergy/AdvReac Type Severity Reaction Status Date / Time niacin Allergy red and Verified 08/13/18 08:14 hot skin ondansetron [From Zofran] AdvReac MIGRAINE Verified 08/13/18 08:14 Review of Systems ROS Statement: Those systems with pertinent positive or pertinent negative responses have been documented in the HPI. ROS Other: All systems not noted in ROS Statement are negative. Past Medical History Past Medical History: Asthma, Diabetes Mellitus, Fibromyalgia, GERD/Reflux, Hyperlipidemia, Rheumatoid Arthritis (RA), Sleep Apnea/CPAP/BIPAP, Thyroid Disorder Additional Past Medical History / Comment(s): Migraines; vertigo associated with migraines, hiatal hernia, History of Any Multi-Drug Resistant Organisms: None Reported Past Surgical History: Section, Cholecystectomy, Hysterectomy, Uterine Ablation Additional Past Surgical History / Comment(s): bilateral oophorectomy Past Anesthesia/Blood Transfusion Reactions: Motion Sickness Additional Past Anesthesia/Blood Transfusion Reaction / Comment(s): . Past Psychological History: Depression Smoking Status: Former smoker Past Alcohol Use History: Rare Past Drug Use History: Marijuana - Past Family History Father Additional Family Medical History / Comment(s): Father had MV replacement. He has high triglycerides. His mother had breast cancer. Mother Family Medical History: No Reported History Additional Family Medical History / Comment(s): Mother has anxiety. General Exam Limitations: no limitations General appearance: alert, in no apparent distress, other (Physical well- developed, well-nourished adult female patient in no acute distress. Vital signs upon presentation are temperature 98.6F, pulse 89, respirations 17, blood pressure 125/99, pulse ox 96% on room air.) Eye exam: Present: normal appearance, PERRL, EOMI. Absent: scleral icterus, conjunctival injection, periorbital swelling ENT exam: Present: normal exam, normal oropharynx, mucous membranes moist Respiratory exam: Present: normal lung sounds bilaterally. Absent: respiratory distress, wheezes, rales, rhonchi, stridor Cardiovascular Exam: Present: regular rate, normal rhythm, normal heart sounds. Absent: systolic murmur, diastolic murmur, rubs, gallop, clicks GI/Abdominal exam: Present: soft, normal bowel sounds. Absent: distended, tenderness, guarding, rebound, rigid Neurological exam: Present: alert, oriented X3, CN II-XII intact Psychiatric exam: Present: normal affect, normal mood Skin exam: Present: warm, dry, intact, normal color. Absent: rash Course Vital Signs 08/26/20 15:43 Temperature 98.6 F Pulse Rate 89 Respiratory 17 Rate Blood Pressure 125/99 O2 Sat by Pulse 96 Oximetry Medical Decision Making - Medical Decision Making 45-year-old female patient presents to the emergency department today for evaluation of substernal chest pain radiating to the left shoulder. Patient did report some shortness of breath or nausea with this. EKG showed normal sinus rhythm with no significant ST elevation or depression. Initial troponin is negative. She will be admitted to the hospital for suture troponins and further evaluation by cardiology. She is agreeable with this plan. - Lab Data Result diagrams: 08/26/20 16:11 08/26/20 16:11 Lab Results 08/26/20 08/26/20 08/26/20 Range/Units 16:11 16:11 16:11 WBC 9.8 (3.8-10.6) k/uL RBC 4.56 (3.80-5.40) m/uL Hgb 14.1 (11.4-16.0) gm/dL Hct 39.7 (34.0-46.0) % MCV 87.0 (80.0-100.0) fL MCH 31.0 (25.0-35.0) pg MCHC 35.6 (31.0-37.0) g/dL RDW 13.9 (11.5-15.5) % Plt Count 264 (150-450) k/uL MPV 7.2 Neutrophils % 63 % Lymphocytes % 30 % Monocytes % 4 % Eosinophils % 2 % Basophils % 1 % Neutrophils # 6.2 (1.3-7.7) k/uL Lymphocytes # 2.9 (1.0-4.8) k/uL Monocytes # 0.4 (0-1.0) k/uL Eosinophils # 0.2 (0-0.7) k/uL Basophils # 0.1 (0-0.2) k/uL Hyperchromasia Slight Poikilocytosis Slight PT 10.0 (9.0-12.0) sec INR 1.0 (<1.2) APTT 25.9 (22.0-30.0) sec Sodium 138 (137-145) mmol/L Potassium 4.2 (3.5-5.1) mmol/L Chloride 103 (98-107) mmol/L Carbon Dioxide 28 (22-30) mmol/L Anion Gap 7 mmol/L BUN 17 (7-17) mg/dL Creatinine 0.58 (0.52-1.04) mg/dL Est GFR (CKD-EPI)AfAm >90 (>60 ml/min/1.73 sqM) Est GFR (CKD-EPI)NonAf >90 (>60 ml/min/1.73 sqM) Glucose 174 H (74-99) mg/dL Calcium 9.4 (8.4-10.2) mg/dL Magnesium 1.6 (1.6-2.3) mg/dL Total Bilirubin 0.5 (0.2-1.3) mg/dL AST 45 H (14-36) U/L ALT 53 H (4-34) U/L Alkaline Phosphatase 102 (38-126) U/L Troponin I (0.000-0.034) ng/mL Total Protein 7.7 (6.3-8.2) g/dL Albumin 4.3 (3.5-5.0) g/dL Lipase 61 (23-300) U/L 08/26/20 Range/Units 16:11 WBC (3.8-10.6) k/uL RBC (3.80-5.40) m/uL Hgb (11.4-16.0) gm/dL Hct (34.0-46.0) % MCV (80.0-100.0) fL MCH (25.0-35.0) pg MCHC (31.0-37.0) g/dL RDW (11.5-15.5) % Plt Count (150-450) k/uL MPV Neutrophils % % Lymphocytes % % Monocytes % % Eosinophils % % Basophils % % Neutrophils # (1.3-7.7) k/uL Lymphocytes # (1.0-4.8) k/uL Monocytes # (0-1.0) k/uL Eosinophils # (0-0.7) k/uL Basophils # (0-0.2) k/uL Hyperchromasia Poikilocytosis PT (9.0-12.0) sec INR (<1.2) APTT (22.0-30.0) sec Sodium (137-145) mmol/L Potassium (3.5-5.1) mmol/L Chloride (98-107) mmol/L Carbon Dioxide (22-30) mmol/L Anion Gap mmol/L BUN (7-17) mg/dL Creatinine (0.52-1.04) mg/dL Est GFR (CKD-EPI)AfAm (>60 ml/min/1.73 sqM) Est GFR (CKD-EPI)NonAf (>60 ml/min/1.73 sqM) Glucose (74-99) mg/dL Calcium (8.4-10.2) mg/dL Magnesium (1.6-2.3) mg/dL Total Bilirubin (0.2-1.3) mg/dL AST (14-36) U/L ALT (4-34) U/L Alkaline Phosphatase (38-126) U/L Troponin I <0.012 (0.000-0.034) ng/mL Total Protein (6.3-8.2) g/dL Albumin (3.5-5.0) g/dL Lipase (23-300) U/L - Radiology Data Radiology results: report reviewed, image reviewed Two-view x-ray of the chest is obtained. Report was reviewed in its entirety. Impression by Dr. Caputo shows no acute cardiopulmonary process. Disposition Clinical Impression: Chest pain Disposition: ADMITTED IP TO THIS [facility] Condition: Serious Referrals: More Jennings MD [Primary Care Provider] - 1-2 days Decision to Admit Reason: Admit from EC Decision Date: 08/26/20 Decision Time: 16:53
[2020-08-26 16:33] LABS: ALT 53 U/L (4-34); AST 45 U/L (14-36); African American GFR (CKD) >90 (>60 ml/min/1.73 sqM); Albumin 4.3 g/dL (3.5-5.0); Alkaline Phosphatase 102 U/L (38-126); Anion Gap 7 mmol/L; Blood Urea Nitrogen 17 mg/dL (7-17); Calcium 9.4 mg/dL (8.4-10.2); Carbon Dioxide 28 mmol/L (22-30); Chloride 103 mmol/L (98-107); Glucose 174 mg/dL (74-99); Lipase 61 U/L (23-300); Magnesium 1.6 mg/dL (1.6-2.3); Non-African American GFR(CKD) >90 (>60 ml/min/1.73 sqM); Partial Thromboplastin Time 25.9 sec (22.0-30.0); Potassium 4.2 mmol/L (3.5-5.1); Sodium 138 mmol/L (137-145); Total Bilirubin 0.5 mg/dL (0.2-1.3); Total Protein 7.7 g/dL (6.3-8.2)
--- NOTE | 2020-08-26 16:40 | XR ---
EXAMINATION TYPE: XR chest 2V DATE OF EXAM: 08/26/2020 COMPARISON: Prior chest x-ray November 02, 2011 HISTORY: Chest pain TECHNIQUE: Frontal and lateral views of the chest are obtained. FINDINGS: There is no focal air space opacity, pleural effusion, or pneumothorax seen. The cardiac silhouette size is within normal limits. There are overlying cardiac leads. The osseous structures a re intact. Surgical clips are present in the upper abdomen. IMPRESSION: No acute cardiopulmonary process.
[2020-08-26] MEDS ORDERED: NITROGLYCERIN SL TABS 0.4 MG TAB SUBLINGUAL PRN (16:51)
[2020-08-26] MEDS ORDERED: ASPIRIN 81 MG PO STA (16:51)
[2020-08-26] MEDS ORDERED: Acetaminophen-Codeine 300-30mg TAB PO PRN (18:47)
[2020-08-26] MEDS ORDERED: BACLOFEN 10 MG TAB PO PRN (18:47)
[2020-08-26] MEDS ORDERED: ATORVASTATIN 10 MG TAB PO SCH (21:00)
[2020-08-26 22:02] VITALS: RESP 18
[2020-08-27 04:17] VITALS: PULSE 97
[2020-08-27 05:39] LABS: Cholesterol 248 mg/dL (<200); HDL Cholesterol 30 mg/dL (40-60); LDL Cholesterol,Calculated 143 mg/dL (0-99); Triglycerides 373 mg/dL (<150)
[2020-08-27] MEDS ORDERED: LEVOTHYROXINE 75 MCG TAB PO SCH (06:30)
[2020-08-27] MEDS ORDERED: PANTOPRAZOLE 40 MG TABLET PO SCH (07:30)
[2020-08-27] MEDS ORDERED: DOBUTamine DRIP for NUC MED 500 MG in DEXTROSE/WATER 1 250ML.BAG IV ONE (08:15)
[2020-08-27 08:28] VITALS: BP 115/74; TEMP 97.8
[2020-08-27] MEDS ORDERED: ASPIRIN 81 MG PO SCH (09:00)
[2020-08-27] MEDS ORDERED: CITALOPRAM HYDROBROMIDE 20 MG TAB PO SCH (09:00)
[2020-08-27] MEDS ORDERED: ASPIRIN 325 MG TAB PO SCH (09:00)
--- NOTE | 2020-08-27 10:00 | P.CRDCN ---
History of Present Illness Consult date: 08/27/20 History of present illness: CHIEF COMPLAINT: Chest pain HISTORY OF PRESENT ILLNESS: This is a 45-year-old female with a past medical history significant for hyperlipidemia, diabetes mellitus, fibromyalgia, and former nicotine dependence. 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 We have been asked to see the patient in consultation for chest pain. Patient examined this morning the bedside. Patient reports she began having left arm pain approximately 3 days ago. She states she has a history of chronic pains were initially this did not concern her. However yesterday about 1 PM she was getting ready for a doctor's appointment and began having midsternal chest discomfort. She denies any associated shortness of breath. She denies nausea or vomiting. She reports she felt diaphoretic but this is not unusual for her. Patient reports she had a stress test performed approximately 7 or 8 years ago and states it was negative at that time. She reports a family history of her dad having a mitral valve replacement but denies family history of premature coronary artery disease. DIAGNOSTICS: EKG reveals sinus rhythm without acute signs of ischemia Chest xray no acute cardiopulmonary process Laboratory data: W BC 9.8. Hemoglobin 14.1. Please count 264. Sodium 138. Potassium 4.2. BUN 17. Creatinine 0.58. Troponin negative 3. Triglycerides 373. Cholesterol 248. LDL 143. HDL 30. Current home cardiac medications include fenofibrate 160 mg daily REVIEW OF SYSTEMS: At the time of my exam: CONSTITUTIONAL: Denies fever or chills. HEENT: Denies blurred vision, vision changes, or eye pain. Denies hemoptysis CARDIOVASCULAR: Denies chest pain, orthopnea, PND or palpitations RESPIRATORY: No shortness of breath. GASTROINTESTINAL: Denies abdominal pain. Denies nausea or vomiting. HEMATOLOGIC: Denies bleeding disorders. GENITOURINARY: Denies any blood in urine. SKIN: Denies pruitis. Denies rash. PHYSICAL EXAM: VITAL SIGNS: Reviewed. GENERAL: Well-developed in no acute distress. HEENT: Head is normocephalic. Pupils are equal, round. Sclerae anicteric. Mucous membranes of the mouth are moist. Neck supple. No JVD or thyromegaly LUNGS: Respirations even and unlabored. Lungs essentially clear to auscultation bilaterally. HEART: Regular rate and rhythm. S1 and S2 heard. ABDOMEN: Soft. Nondistended. Nontender. EXTREMITIES: Normal range of motion. No clubbing or cyanosis. Peripheral pulses intact. No lower extremity edema NEUROLOGIC: Awake and alert. Oriented x 3. ASSESSMENT: Chest pain, troponins negative 3 Hyperlipidemia Diabetes mellitus, type II Fibromyalgia Hypothyroidism Former nicotine dependence PLAN: An acute coronary event has been ruled out Patient has been started on Lipitor per internal medicine Obtain 2-D echo to assess cardiac structure and function Patient to undergo dobutamine stress test today to assess for reversible ischemia Nurse practitioner note has been reviewed by physician. Signing provider agrees with the documented findings, assessment, and plan of care. Past Medical History Past Medical History: Asthma, Diabetes Mellitus, Fibromyalgia, GERD/Reflux, Hyperlipidemia, Rheumatoid Arthritis (RA), Sleep Apnea/CPAP/BIPAP, Thyroid Disorder Additional Past Medical History / Comment(s): Migraines; vertigo associated with migraines, hiatal hernia, chronic pain, MARGARETTE- no cpap, DM-diet controlled. History of Any Multi-Drug Resistant Organisms: None Reported Past Surgical History: Section, Cholecystectomy, Hysterectomy, Uterine Ablation Additional Past Surgical History / Comment(s): bilateral oophorectomy, right knee- tumor removed Past Anesthesia/Blood Transfusion Reactions: Motion Sickness Additional Past Anesthesia/Blood Transfusion Reaction / Comment(s): . Past Psychological History: Anxiety, Depression Additional Psychological History / Comment(s): . Smoking Status: Former smoker Past Alcohol Use History: Rare Additional Past Alcohol Use History / Comment(s): quit smoking 1994, smoked for 5 yrs, 1 PPD Past Drug Use History: Marijuana - Past Family History Father Additional Family Medical History / Comment(s): Father had MV replacement. He has high triglycerides. His mother had breast cancer. Mother Family Medical History: No Reported History Additional Family Medical History / Comment(s): Mother has anxiety. Medications and Allergies Home Medications Medication Instructions Recorded Confirmed Type Baclofen [Lioresal] 20 mg PO DAILY PRN 03/06/14 08/26/20 History Fenofibrate [Lofibra] 160 mg PO HS 03/06/14 08/26/20 History Levothyroxine Sodium [Levoxyl] 75 mcg PO DAILY 03/06/14 08/26/20 History Omeprazole [PriLOSEC] 20 mg PO DAILY 06/12/17 08/26/20 History Cholecalciferol (Vitamin D3) 10,000 unit PO DAILY 08/09/18 08/26/20 History [Vitamin D3] Acetaminophen-Codeine 300-30mg 1 tab PO DAILY PRN 08/26/20 08/26/20 History [Tylenol w/codeine #3] Citalopram Hydrobromide [CeleXA] 40 mg PO DAILY 08/26/20 08/26/20 History Famotidine/Ca Carb/Mag Hydrox 1 tab PO Q4-6H PRN 08/26/20 08/26/20 History [Pepcid Complete Tablet Chew] Ferrous Sulfate [Iron (65 MG 325 mg PO DAILY 08/26/20 08/26/20 History Elemental)] Garlic 1 tab PO DAILY 08/26/20 08/26/20 History Ibuprofen [Motrin] 400 mg PO Q4-6H PRN 08/26/20 08/26/20 History Loratadine [Claritin] 10 mg PO DAILY 08/26/20 08/26/20 History Magnesium Oxide [Mag-Ox] 250 mg PO DAILY 08/26/20 08/26/20 History [facility] Fatty Acids/Fish Oil [Fish 1 cap PO DAILY 08/26/20 08/26/20 History Oil 1,000 mg Softgel] Turmeric Root Extract [Turmeric] 500 mg PO DAILY 08/26/20 08/26/20 History Allergies Allergy/AdvReac Type Severity Reaction Status Date / Time niacin Allergy red and Verified 08/26/20 17:16 hot skin ondansetron [From Zofran] AdvReac MIGRAINE Verified 08/26/20 17:16 Physical Exam Vitals: Vital Signs Temp Pulse Pulse Resp BP BP Pulse Ox 08/27/20 03:00 98 F 97 18 115/78 98 08/26/20 21:00 98.1 F 87 18 140/90 97 08/26/20 18:20 97.7 F 81 16 124/85 96 08/26/20 15:43 98.6 F 89 17 125/99 96 Intake and Output 08/26/20 08/27/20 08/27/20 22:59 06:59 14:59 Other: Voiding Method Toilet Toilet # Voids 1 1 Weight 114.305 kg Results 08/26/20 16:11 08/26/20 16:11 Cardiac Enzymes 08/26/20 08/26/2008/26/20 Range/Units 16:11 16:11 18:48 AST 45 H (14-36) U/L Troponin I <0.012 <0.012 (0.000-0.034) ng/mL 08/26/20 Range/Units 22:43 AST (14-36) U/L Troponin I <0.012 (0.000-0.034) ng/mL Coagulation 08/26/20 Range/Units 16:11 PT 10.0 (9.0-12.0) sec APTT 25.9 (22.0-30.0) sec Lipids 08/26/20 Range/Units 16:11 Triglycerides 373 H (<150) mg/dL Cholesterol 248 H (<200) mg/dL HDL Cholesterol 30 L (40-60) mg/dL CBC 08/26/20 Range/Units 16:11 WBC 9.8 (3.8-10.6) k/uL RBC 4.56 (3.80-5.40) m/uL Hgb 14.1 (11.4-16.0) gm/dL Hct 39.7 (34.0-46.0) % Plt Count 264 (150-450) k/uL Comprehensive Metabolic Panel 08/26/20 Range/Units 16:11 Sodium 138 (137-145) mmol/L Potassium 4.2 (3.5-5.1) mmol/L Chloride 103 (98-107) mmol/L Carbon Dioxide 28 (22-30) mmol/L BUN 17 (7-17) mg/dL Creatinine 0.58 (0.52-1.04) mg/dL Glucose 174 H (74-99) mg/dL Calcium 9.4 (8.4-10.2) mg/dL AST 45 H (14-36) U/L ALT 53 H (4-34) U/L Alkaline Phosphatase 102 (38-126) U/L Total Protein 7.7 (6.3-8.2) g/dL Albumin 4.3 (3.5-5.0) g/dL Current Medications Generic Name Dose Route Start Last Admin Trade Name Freq PRN Reason Stop Dose Admin Acetaminophen/Codeine Phosphate 1 each 08/26/20 18:47 08/26/20 20:07 Acetaminophen-Codeine 300-30mg Tab PO 1 each DAILY PRN Administration Pain Aspirin 325 mg 08/27/20 09:00 Aspirin 325 Mg Tab PO DAILY [facility] Atorvastatin Calcium 10 mg 08/26/20 21:00 08/26/20 20:10 Atorvastatin 10 Mg Tab PO Not Given HS RASHMI Baclofen 20 mg 08/26/20 18:47 Baclofen 10 Mg Tab PO DAILY PRN Muscle Spasm Citalopram Hydrobromide 40 mg 08/27/20 09:00 Citalopram Hydrobromide 20 Mg Tab PO DAILY RASHMI Levothyroxine Sodium 75 mcg 08/27/20 06:30 08/27/20 06:21 Levothyroxine 75 Mcg Tab PO 75 mcg DAILY@0630 [facility] Administration Nitroglycerin 0.4 mg 08/26/20 16:51 Nitroglycerin Sl Tabs 0.4 Mg Tab SUBLINGUAL Q5M PRN Chest Pain Pantoprazole Sodium 40 mg 08/27/20 07:30 08/27/20 06:21 Pantoprazole 40 Mg Tablet PO 40 mg DAILY@0730 [facility] Administration Intake and Output 08/26/20 08/27/20 08/27/20 22:59 06:59 14:59 Other: Voiding Method Toilet Toilet # Voids 1 1 Weight 114.305 kg 08/26/20 16:11 08/26/20 16:11
--- NOTE | 2020-08-27 11:02 | ECHOF ---
Referral Reason:Chest Pain MEASUREMENTS -------- HEIGHT: 162.6 cm WEIGHT: 114.3 kg BP: 115/78 RVIDd: 2.5 cm (< 3.3) IVSd: 1.3 cm (0.6 - 1.1) LVIDd: 3.3 cm (3.9 - 5.3) LVPWd: 1.2 cm (0.6 - 1.1) IVSs: 1.8 cm LVIDs: 2.3 cm LVPWs: 1.5 cm LA Diam: 2.8 cm (2.7 - 3.8) Ao Diam: 2.8 cm (2.0 - 3.7) MV EXCURSION: 13.536 mm (> 18.000) MV EF SLOPE: 30 mm/s (70 - 150) EPSS: 0.5 cm MV E Nehemias: 0.91 m/s MV DecT: 216 ms MV A Nehemias: 0.84 m/s MV E/A Ratio: 1.08 FINDINGS -------- Sinus rhythm. This was a technically adequate study. The left ventricular size is normal. There is mild concentric left ventricular hypertrophy. Overa ll left ventricular systolic function is normal with, an EF between 55 - 60 %. The right ventricle is normal in size. The left atrium is normal in size. The right atrium was not well visualized. The aortic valve is trileaflet, and appears structurally normal. No aortic stenosis or regurgitation. The mitral valve is normal. There is trace mitral regurgitation. The tricuspid valve appears structurally normal. There is no pulmonic regurgitation present. The aortic root size is normal. IVC Not well visulized. There is no pericardial effusion. CONCLUSIONS -------- 1. There is mild concentric left ventricular hypertrophy. 2. Overall left ventricular systolic function is normal with, an EF between 55 - 60 %. 3. The left atrium is normal in size. 4. The aortic valve is trileaflet, and appears structurally normal. No aortic stenosis or regurgitati on. 5. There is trace mitral regurgitation. SENIOR PHP SOFTWARE DEVELOPER: Lucia Marinelli RD
--- NOTE | 2020-08-27 12:59 | ECHOS ---
STRESS ECHOCARDIOGRAM LUMASON: N/A Vial INDICATIONS: Chest pain. MEDICATIONS: BASELINE HEART RATE: 84 BASELINE BLOOD PRESSURE: 154/45 MAXIMUM HEART RATE: 151 MAXIMUM BLOOD PRESSURE: 193/71 85% MPHR: 149 100% MPHR: 175 METS: N/A MAXIMUM STAGE REACHED: 3 TOTAL EXERCISE TIME: 8:15 CLINICAL INFORMATION: Baseline rhythm is sinus mechanism, rate of 84, normal axis, intervals, minor nonspecific ST-T wave changes, baseline blood pressure 154/45 mmHg. Patient received infusion of dobutamine per protocol, peak rate 151 beats per minute which is equal to 86% maximum predicted heart rate. Peak blood pressure 142/49 mmHg. Electrocardiograph monitoring revealed no evidence of diagnostic ischemic ST deviation. FINDINGS: Baseline echocardiogram revealed normal wall motion. At peak infusion, there was normal wall motion augmentation with no hypokinesis or dyskinesis. CONCLUSION: 1. Normal electrocardiographic stress response to dobutamine infusion with rare PVCs. 2. Normal stress echocardiogram with no evidence of stress-induced ischemia. MMODL / IJN: [id number] /
--- NOTE | 2020-08-27 13:06 | P.DS ---
Providers Date of admission: 08/26/20 16:51 Expected date of discharge: 08/27/20 Attending physician: Rickey Chamberlain MD Consults: 08/26/20 16:51 Consult Physician Urgent Consulting Provider: [facility] Consult Reason/Comments: Chest Pain Do you want consulting provider notified?: Yes Primary care physician: More Jennings Hospital Course: Final diagnoses Acute chest pain with negative troponins, stress tests pending Hyperlipidemia Diabetes mellitus type 2 Hypothyroidism Former nicotine dependence Fibromyalgia Hospital course: This is a 45-year-old female admitted with acute chest pain and multiple other medical issues. Evaluated by cardiology and scheduled for stress test today. Patient will be discharged home today pending stress test results, final DC recommendations and clearance from cardiology. Please refer to H&P/EHR for further details. The impression and plan of care has been dictated as directed. : I performed a history and examination of this patient, discussed the same with the dictator. I agree with the dictator's note ,documented as a scribe. Any additional findings or plans will be noted. Patient Condition at Discharge: Stable Plan - Discharge Summary Discharge Rx Participant: No New Discharge Prescriptions: New Atorvastatin [Lipitor] 10 mg PO HS #30 tab Continue Baclofen [Lioresal] 20 mg PO DAILY PRN PRN Reason: Muscle Spasm Levothyroxine Sodium [Levoxyl] 75 mcg PO DAILY Fenofibrate [Lofibra] 160 mg PO HS Omeprazole [PriLOSEC] 20 mg PO DAILY Cholecalciferol (Vitamin D3) [Vitamin D3] 10,000 unit PO DAILY Citalopram Hydrobromide [CeleXA] 40 mg PO DAILY Ibuprofen [Motrin] 400 mg PO Q4-6H PRN PRN Reason: Pain [place]-3 Fatty Acids/Fish Oil [Fish Oil 1,000 mg Softgel] 1 cap PO DAILY Garlic 1 tab PO DAILY Ferrous Sulfate [Iron (65 MG Elemental)] 325 mg PO DAILY Turmeric Root Extract [Turmeric] 500 mg PO DAILY Magnesium Oxide [Mag-Ox] 250 mg PO DAILY Loratadine [Claritin] 10 mg PO DAILY Acetaminophen-Codeine 300-30mg [Tylenol w/codeine #3] 1 tab PO DAILY PRN PRN Reason: Pain Famotidine/Ca Carb/Mag Hydrox [Pepcid Complete Tablet Chew] 1 tab PO Q4-6H PRN PRN Reason: Gi Upset Discharge Medication List Baclofen [Lioresal] 20 mg PO DAILY PRN 03/06/14 [History] Fenofibrate [Lofibra] 160 mg PO HS 03/06/14 [History] Levothyroxine Sodium [Levoxyl] 75 mcg PO DAILY 03/06/14 [History] Omeprazole [PriLOSEC] 20 mg PO DAILY 06/12/17 [History] Cholecalciferol (Vitamin D3) [Vitamin D3] 10,000 unit PO DAILY 08/09/18 [History] Acetaminophen-Codeine 300-30mg [Tylenol w/codeine #3] 1 tab PO DAILY PRN 08/26/20 [History] Citalopram Hydrobromide [CeleXA] 40 mg PO DAILY 08/26/20 [History] Famotidine/Ca Carb/Mag Hydrox [Pepcid Complete Tablet Chew] 1 tab PO Q4-6H PRN 08/26/20 [History] Ferrous Sulfate [Iron (65 MG Elemental)] 325 mg PO DAILY 08/26/20 [History] Garlic 1 tab PO DAILY 08/26/20 [History] Ibuprofen [Motrin] 400 mg PO Q4-6H PRN 08/26/20 [History] Loratadine [Claritin] 10 mg PO DAILY 08/26/20 [History] Magnesium Oxide [Mag-Ox] 250 mg PO DAILY 08/26/20 [History] [place]-3 Fatty Acids/Fish Oil [Fish Oil 1,000 mg Softgel] 1 cap PO DAILY 08/26/20 [History] Turmeric Root Extract [Turmeric] 500 mg PO DAILY 08/26/20 [History] Atorvastatin [Lipitor] 10 mg PO HS #30 tab 08/27/20 [Rx] Follow up Appointment(s)/Referral(s): More Jennings MD [Primary Care Provider] - 1-2 days
== END 2020-08-27 14:34 ==
LOC: EC 15:35 → 1SOBS 16:51
PROVIDERS: ADMIT Family Medicine; ATTEND Family Medicine
DX: R07.89 Other chest pain (principal); R06.02 Shortness of breath; E11.9 Type 2 diabetes mellitus without complications; J45.909 Unspecified asthma, uncomplicated; E78.00 Pure hypercholesterolemia, unspecified; M06.9 Rheumatoid arthritis, unspecified; G43.909 Migraine, unspecified, not intractable, without status migrainosus; G89.29 Other chronic pain; R01.1 Cardiac murmur, unspecified; K21.9 Gastro-esophageal reflux disease without esophagitis; M79.7 Fibromyalgia; G47.30 Sleep apnea, unspecified; Z99.89 Dependence on other enabling machines and devices; R42 Dizziness and giddiness; K44.9 Diaphragmatic hernia without obstruction or gangrene; Z90.49 Acquired absence of other specified parts of digestive tract; Z98.891 History of uterine scar from previous surgery; Z90.722 Acquired absence of ovaries, bilateral; Z98.890 Other specified postprocedural states; F32.9 Major depressive disorder, single episode, unspecified; Z87.891 Personal history of nicotine dependence; Z80.3 Family history of malignant neoplasm of breast; Z82.49 Family history of ischemic heart disease and other diseases of the circulatory system; Z80.8 Family history of malignant neoplasm of other organs or systems; Z79.890 Hormone replacement therapy; Z79.891 Long term (current) use of opiate analgesic; Z79.899 Other long term (current) drug therapy; Z88.8 Allergy status to other drugs, medicaments and biological substances; E78.5 Hyperlipidemia, unspecified; E03.9 Hypothyroidism, unspecified
CPT/HCPCS: 93005 ×2; 99285; 36415; 93306; 80061; 80053; 83690; 83735; 84484; 85025; 85610; 85730; 71046; G0378 ×2; C8930; J1250; Q9950; 93351

== ENCOUNTER 2021-08-17 07:54 | Emergency (ER) | payer OTHER ==
[2021-08-17 08:09] VITALS: RESP 18; TEMP 97.8
[2021-08-17] MEDS ORDERED: MAGNESIUM SULFATE-D5W PMX 1 GM in DEXTROSE/WATER 1 100ML.BAG IVPB ONE (08:17)
[2021-08-17] MEDS ORDERED: MORPHINE SULFATE 4 MG/ML SYRINGE IVP STA (08:17)
[2021-08-17] MEDS ORDERED: SODIUM CHLORIDE 0.9% 1,000 ML IV ONE (08:17)
[2021-08-17] MEDS ORDERED: FAMOTIDINE 20 MG/2 ML VIAL IV STA (08:17)
[2021-08-17] MEDS ORDERED: diphenhydrAMINE 50 MG/ML 1 ML VIAL IVP STA (08:18)
[2021-08-17] MEDS ORDERED: METOCLOPRAMIDE 5 MG/ML 2 ML VIAL IVP STA (08:18)
--- NOTE | 2021-08-17 08:34 | ED ---
General Adult HPI - General Chief complaint: Headache Stated complaint: migraine Time Seen by Provider: 08/17/21 08:00 Source: patient, EMS, RN notes reviewed, old records reviewed Mode of arrival: EMS Limitations: physical limitation - History of Present Illness Initial comments: 46-year-old female history of migraine headaches presents for evaluation of headache, nausea vomiting. History is limited secondary to vomiting. She states that her headache is typical. She has been taking Motrin and Tylenol 3 as well as muscle relaxer at home without significant improvement. She has developed significant nausea and vomiting. She denies severe abdominal pain. Denies fever. - Related Data Home Medications Medication Instructions Recorded Confirmed Baclofen [Lioresal] 10 - 20 mg PO DAILY PRN 03/06/14 08/17/21 [place]-3 Fatty Acids/Fish Oil [Fish 1 cap PO DAILY 08/26/20 08/17/21 Oil 1,000 mg Softgel] Turmeric Root Extract [Turmeric] 500 mg PO DAILY 08/26/20 08/17/21 Acetaminophen-Codeine 300-30mg 1 tab PO DAILY PRN 08/17/21 08/17/21 [Tylenol w/codeine #3] Cholecalciferol [Vitamin D3 (125 125 mcg PO DAILY 08/17/21 08/17/21 Mcg = 5000 Iu)] DULoxetine HCL [Cymbalta] 30 mg PO DAILY 08/17/21 08/17/21 Famotidine 40 mg PO HS 08/17/21 08/17/21 Fenofibrate,Micronized 67 mg PO HS 08/17/21 08/17/21 [Fenofibrate] Levothyroxine Sodium [Synthroid] 88 mcg PO DAILY 08/17/21 08/17/21 Magnesium Oxide [Mag-Ox] 400 mg PO HS 08/17/21 08/17/21 Allergies Allergy/AdvReac Type Severity Reaction Status Date / Time niacin Allergy red and Verified 08/17/21 09:21 hot skin ondansetron [From Zofran] AdvReac MIGRAINE Verified 08/17/21 09:21 Review of Systems ROS Statement: Those systems with pertinent positive or pertinent negative responses have been documented in the HPI. ROS Other: All systems not noted in ROS Statement are negative. Past Medical History Past Medical History: Asthma, Diabetes Mellitus, Fibromyalgia, GERD/Reflux, Hyp erlipidemia, Rheumatoid Arthritis (RA), Sleep Apnea/CPAP/BIPAP, Thyroid Disorder Additional Past Medical History / Comment(s): Migraines; vertigo associated with migraines, hiatal hernia, chronic pain, MARGARETTE- no cpap, DM-diet controlled. History of Any Multi-Drug Resistant Organisms: None Reported Past Surgical History: Section, Cholecystectomy, Hysterectomy, Uterine Ablation Additional Past Surgical History / Comment(s): bilateral oophorectomy, right knee- tumor removed Past Anesthesia/Blood Transfusion Reactions: Motion Sickness Additional Past Anesthesia/Blood Transfusion Reaction / Comment(s): . Past Psychological History: Anxiety, Depression Smoking Status: Former smoker Past Alcohol Use History: Rare Past Drug Use History: Marijuana - Past Family History Father Additional Family Medical History / Comment(s): Father had MV replacement. He has high triglycerides. His mother had breast cancer. Mother Family Medical History: No Reported History Additional Family Medical History / Comment(s): Mother has anxiety. General Exam Limitations: no limitations General appearance: alert, in distress (Secondary to vomiting) Head exam: Present: atraumatic, normocephalic Eye exam: Present: normal appearance, PERRL ENT exam: Present: mucous membranes dry Neck exam: Present: normal inspection. Absent: tenderness, meningismus Respiratory exam: Present: normal lung sounds bilaterally. Absent: respiratory distress, wheezes Cardiovascular Exam: Present: regular rate, normal rhythm GI/Abdominal exam: Present: soft. Absent: distended, tenderness Extremities exam: Present: normal inspection, normal capillary refill. Absent: pedal edema Neurological exam: Present: alert. Absent: motor sensory deficit Skin exam: Present: warm, dry, intact. Absent: cyanosis, diaphoretic Course Vital Signs 08/17/21 08:05 Temperature 97.8 F Pulse Rate 78 Respiratory 18 Rate Blood Pressure 152/91 O2 Sat by Pulse 98 Oximetry Medical Decision Making - Medical Decision Making 46-year-old female history of migraine presenting with headache and vomiting. Initial assessment is limited however after treatment the patient was able to be better evaluated. She is well-appearing with stable vitals. Nonfocal neurologic exam. She did indicate that this headache was more severe than her typical migraine. Head CT was performed which is negative for intracranial hemorrhage mass effect. Laboratory studies are unremarkable with the exception of hyperglycemia. Patient feeling significantly better on reevaluation and wishing to be discharged that she may rest at home. - Lab Data Result diagrams: 08/17/21 08:43 08/17/21 08:43 Lab Results 08/17/21 08/17/21 Range/Units 08:43 08:43 WBC 10.8 H (3.8-10.6) k/uL RBC 4.75 (3.80-5.40) m/uL Hgb 14.4 (11.4-16.0) gm/dL Hct 41.8 (34.0-46.0) % MCV 87.9 (80.0-100.0) fL MCH 30.4 (25.0-35.0) pg MCHC 34.5 (31.0-37.0) g/dL RDW 14.0 (11.5-15.5) % Plt Count 290 (150-450) k/uL MPV 7.9 Neutrophils % 68 % Lymphocytes % 27 % Monocytes % 2 % Eosinophils % 1 % Basophils % 1 % Neutrophils # 7.4 (1.3-7.7) k/uL Lymphocytes # 2.9 (1.0-4.8) k/uL Monocytes # 0.2 (0-1.0) k/uL Eosinophils # 0.1 (0-0.7) k/uL Basophils # 0.1 (0-0.2) k/uL Hyperchromasia Slight Poikilocytosis Slight Sodium 139 (137-145) mmol/L Potassium 3.6 (3.5-5.1) mmol/L Chloride 102 (98-107) mmol/L Carbon Dioxide 22 (22-30) mmol/L Anion Gap 15 mmol/L BUN 17 (7-17) mg/dL Creatinine 0.69 (0.52-1.04) mg/dL Est GFR (CKD-EPI)AfAm >90 (>60 ml/min/1.73 sqM) Est GFR (CKD-EPI)NonAf >90 (>60 ml/min/1.73 sqM) Glucose 197 H (74-99) mg/dL Calcium 9.6 (8.4-10.2) mg/dL Magnesium 1.6 (1.6-2.3) mg/dL Total Bilirubin 0.9 (0.2-1.3) mg/dL AST 53 H (14-36) U/L ALT 59 H (4-34) U/L Alkaline Phosphatase 108 (38-126) U/L Total Protein 8.3 H (6.3-8.2) g/dL Albumin 4.7 (3.5-5.0) g/dL Disposition Clinical Impression: Migraine Disposition: HOME SELF-CARE Condition: Good Instructions (If sedation given, give patient instructions): Acute Headache (ED) Is patient prescribed a controlled substance at d/c from ED?: No Referrals: More Jennings MD [Primary Care Provider] - 1-2 days Time of Disposition: 10:51
[2021-08-17 09:01] LABS: Basophils # (A) 0.1 k/uL (0-0.2); Basophils % (A) 1 %; Eosinophils # (A) 0.1 k/uL (0-0.7); Eosinophils % (A) 1 %; HCT 41.8 % (34.0-46.0); HGB 14.4 gm/dL (11.4-16.0); Hyperchromasia Slight; Lymphocytes # (A) 2.9 k/uL (1.0-4.8); Lymphocytes % (A) 27 %; MCH 30.4 pg (25.0-35.0); MCHC 34.5 g/dL (31.0-37.0); MCV 87.9 fL (80.0-100.0); Mean Platelet Volume 7.9; Monocytes # (A) 0.2 k/uL (0-1.0); Monocytes % (A) 2 %; Neutrophils # (A) 7.4 k/uL (1.3-7.7); Neutrophils % (A) 68 %; Platelet Count 290 k/uL (150-450); Poikilocytosis Slight; RBC 4.75 m/uL (3.80-5.40); WBC 10.8 k/uL (3.8-10.6)
[2021-08-17 09:15] LABS: ALT 59 U/L (4-34); AST 53 U/L (14-36); African American GFR (CKD) >90 (>60 ml/min/1.73 sqM); Albumin 4.7 g/dL (3.5-5.0); Alkaline Phosphatase 108 U/L (38-126); Anion Gap 15 mmol/L; Blood Urea Nitrogen 17 mg/dL (7-17); Calcium 9.6 mg/dL (8.4-10.2); Carbon Dioxide 22 mmol/L (22-30); Chloride 102 mmol/L (98-107); Glucose 197 mg/dL (74-99); Magnesium 1.6 mg/dL (1.6-2.3); Non-African American GFR(CKD) >90 (>60 ml/min/1.73 sqM); Potassium 3.6 mmol/L (3.5-5.1); Sodium 139 mmol/L (137-145); Total Bilirubin 0.9 mg/dL (0.2-1.3); Total Protein 8.3 g/dL (6.3-8.2)
--- NOTE | 2021-08-17 10:43 | CT ---
EXAMINATION TYPE: CT brain wo con DATE OF EXAM: 08/17/2021 COMPARISON: 12/01/2012 HISTORY: migraine headache, hx of migraines CT DLP: 1099.[address] of the brain was performed. The ventricles, basal cisterns and sulci overlying the cerebral convexities demonstrate a normal appe arance. There is no evidence for intracranial hemorrhage or sulcal effacement. No mass effects are seen. Osseous calvarium is intact. If symptoms persist consider MRI as clinically warranted. IMPRESSION: 1. No acute intracranial process is seen at this time.
[2021-08-17 11:30] VITALS: BP 135/68; PULSE 88
== END 2021-08-17 11:29 | disposition home or self-care (01) ==
LOC: EC 07:54
DX: G43.909 Migraine, unspecified, not intractable, without status migrainosus (principal); J45.909 Unspecified asthma, uncomplicated; E11.9 Type 2 diabetes mellitus without complications; M79.7 Fibromyalgia; K21.9 Gastro-esophageal reflux disease without esophagitis; E78.5 Hyperlipidemia, unspecified; E07.9 Disorder of thyroid, unspecified; F41.9 Anxiety disorder, unspecified; F32.A Depression, unspecified; F12.90 Cannabis use, unspecified, uncomplicated; Z90.49 Acquired absence of other specified parts of digestive tract; Z90.710 Acquired absence of both cervix and uterus; Z87.891 Personal history of nicotine dependence
CPT/HCPCS: 99284; 96365; 96366 ×2; 96375 ×4; 36415; 80053; 83735; 85025; 70450; J2270; J1200; J2765; J3475

== ENCOUNTER 2023-06-30 01:50 | Emergency (ER) | payer OTHER ==
--- NOTE | 2023-06-30 03:11 | ED ---
Psych HPI <Jake Kan - Last Filed: 06/30/23 14:03> <Lukas Jacques - Last Filed: 07/01/23 14:28> - General Source: patient, family, police, RN notes reviewed, old records reviewed Mode of arrival: EMS Limitations: altered mental status - History of Present Illness MD Complaint: altered mental status -: unknown Associated Psychiatric Symptoms: racing thoughts, auditory hallucinations, delusions Quality: constant Improves With: none Context: significant life stressor Associated Symptoms: denies other symptoms Treatments Prior to Arrival: placed on mental health hold <Jake Vera - Last Filed: 07/03/23 21:50> - General Chief Complaint: Psychiatric Symptoms Stated Complaint: Mental Health Time Seen by Provider: 06/30/23 01:53 - History of Present Illness Initial Comments: This is a 48-year-old female who is a significantly poor historian coming in under petition by her mother for psychiatric evaluation and management. Patient is singing, belligerent, not seeing appropriate phrases her words, not responding to questions she is on unable to cooperate history of present illness (Jake Vera) - Related Data Home Medications Medication Instructions Recorded Confirmed Baclofen [Lioresal] 20 mg PO BID PRN 03/06/14 06/30/23 Cholecalciferol [Vitamin D3 (125 125 mcg PO DAILY 08/17/21 06/30/23 Mcg = 5000 Iu)] Levothyroxine Sodium [Synthroid] 88 mcg PO DAILY 08/17/21 06/30/23 Magnesium Oxide [Mag-Ox] 400 mg PO DAILY 08/17/21 06/30/23 Rimegepant Sulfate [Nurtec Odt] 75 mg PO DAILY PRN 06/30/23 06/30/23 Sertraline [Zoloft] 100 mg PO DAILY 06/30/23 06/30/23 cloNIDine HCL [Catapres] 0.1 mg PO BID PRN 06/30/23 06/30/23 metFORMIN HCL [Glucophage] 500 mg PO BID 06/30/23 06/30/23 Allergies Allergy/AdvReac Type Severity Reaction Status Date / Time niacin Allergy red and Verified 06/30/23 14:27 hot skin ondansetron [From Zofran] AdvReac MIGRAINE Verified 06/30/23 14:27 Review of Systems ROS Other: All systems not noted in ROS Statement are negative. <Jake Kan - Last Filed: 06/30/23 14:03> ROS Other: All systems not noted in ROS Statement are negative. <GeorgieLukas D - Last Filed: 07/01/23 14:28> ROS Other: All systems not noted in ROS Statement are negative. <Jake Vera - Last Filed: 07/03/23 21:50> ROS Statement: Those systems with pertinent positive or pertinent negative responses have been documented in the HPI. Past Medical History Past Medical History: Asthma, Diabetes Mellitus, Fibromyalgia, GERD/Reflux, Hyperlipidemia, Rheumatoid Arthritis (RA), Sleep Apnea/CPAP/BIPAP, Thyroid Disorder Additional Past Medical History / Comment(s): Migraines; vertigo associated with migraines, hiatal hernia, chronic pain, MARGARETTE- no cpap, DM-diet controlled. History of Any Multi-Drug Resistant Organisms: None Reported Past Surgical History: Section, Cholecystectomy, Hysterectomy, Uterine Ablation Additional Past Surgical History / Comment(s): bilateral oophorectomy, right knee- tumor removed Past Anesthesia/Blood Transfusion Reactions: Motion Sickness Additional Past Anesthesia/Blood Transfusion Reaction / Comment(s): . Past Psychological History: Anxiety, Depression Smoking Status: Former smoker Past Alcohol Use History: Rare Past Drug Use History: Marijuana - Past Family History Father Additional Family Medical History / Comment(s): Father had MV replacement. He has high triglycerides. His mother had breast cancer. Mother Family Medical History: No Reported History Additional Family Medical History / Comment(s): Mother has anxiety. <Jake Vera - Last Filed: 07/03/23 21:50> General Exam Limitations: altered mental status General appearance: alert, in no apparent distress, anxious, in distress Head exam: Present: atraumatic, normocephalic, normal inspection Eye exam: Present: normal appearance, PERRL, EOMI. Absent: scleral icterus, conjunctival injection, periorbital swelling ENT exam: Present: normal exam, mucous membranes moist Neck exam: Present: normal inspection. Absent: tenderness, meningismus, lymphadenopathy Respiratory exam: Present: normal lung sounds bilaterally. Absent: respiratory distress, wheezes, rales, rhonchi, stridor Cardiovascular Exam: Present: regular rate, normal rhythm, normal heart sounds. Absent: systolic murmur, diastolic murmur, rubs, gallop, clicks GI/Abdominal exam: Present: soft, normal bowel sounds. Absent: distended, tenderness, guarding, rebound, rigid Extremities exam: Present: normal inspection, full ROM, normal capillary refill. Absent: tenderness, pedal edema, joint swelling, calf tenderness Back exam: Present: normal inspection Neurological exam: Present: alert, oriented X3, CN II-XII intact Psychiatric exam: Present: normal affect, normal mood Skin exam: Present: warm, dry, intact, normal color. Absent: rash <Jake Vera - Last Filed: 07/03/23 21:50> Course <Lukas Jacques - Last Filed: 07/01/23 14:28> <Jake Vera - Last Filed: 07/03/23 21:50> Vital Signs 06/30/23 07/01/23 07/01/23 07:30 02:00 07:30 Temperature 98.3 F Pulse Rate 91 95 100 Respiratory 20 18 20 Rate Blood Pressure 140/95 135/92 130/92 O2 Sat by Pulse 97 100 98 Oximetry 07/01/23 07/01/23 07/01/23 12:32 17:02 19:25 Temperature Pulse Rate 130 H 94 117 H Respiratory 24 18 18 Rate Blood Pressure 130/93 154/94 137/93 O2 Sat by Pulse 97 97 97 Oximetry 07/02/23 07/02/23 07/02/23 00:00 04:00 08:32 Temperature Pulse Rate 102 H 86 104 H Respiratory 18 18 18 Rate Blood Pressure 143/91 145/90 136/83 O2 Sat by Pulse 98 98 97 Oximetry 07/02/23 07/02/23 07/03/23 14:43 22:00 08:44 Temperature 98.6 F Pulse Rate 98 101 H 98 Respiratory 16 18 18 Rate Blood Pressure 179/85 141/91 168/89 O2 Sat by Pulse 96 97 Oximetry 07/03/23 07/03/23 15:15 15:18 Temperature 98.1 F Pulse Rate 84 103 H Respiratory 18 18 Rate Blood Pressure 175/98 142/98 O2 Sat by Pulse 97 98 Oximetry - Reevaluation(s) Reevaluation #1: 06/30/23 03:12 Medical records reviewed (Jake Vera) Reevaluation #2: 06/30/23 03:12 Medical clear for psychiatric evaluation (Jake Vera) Reevaluation #3: 07/01/23 12:45 Patient seen and evaluated at the bedside after nurse notified me that patient was tachycardic. Allegedly she is pending psychiatric transfer. She did have labs drawn yesterday which were found to be unremarkable. She was seen and evaluated at bedside. She did not have any clonus. No suspicion for serotonin syndrome. She does report history of palpitations. She had a recent negative stress test. Patient denies any complaints and she is tachycardic to the 130s to 140s at the bedside. She states that she feels warm. She denies feeling anxious. She is not dyspneic. Plan is to perform cardiac workup. Chart review was performed. Patient according to documentation was placed in restraints for her psychotic symptoms. At the bedside she did not appear to be psychotic. Patient given Ativan. 07/01/23 12:47 My EKG interpretation: Ventricular rate 118, tachycardia,. 127, QRS 80, QTC 400. No SD prolongation, no QTC prolongation. EKG compared to 08/26/2020 showing no changes. Overall, this EKG is nonspecific 07/01/23 14:28 Cardiac labs were ordered found to be unremarkable. Troponin, thyroid levels and electrolytes all within acceptable limits. Heart rate improved markedly after administration of Ativan and IV fluids. Patient reevaluated at bedside on be within stable medical condition. (Lukas Jacques) Procedures - Restraint - Face to Face Restraint Occurrence 1 Patient's Immediate Situation: Endangers self safety, Endangers others' safety Patient's Reaction to the Intervention: Cooperative, Uncooperative, Angry, Belligerent Patient's Medical & Behavioral Condition: Awake Need to Continue or Terminate Restraint or Seclusion: Continue Face to Face Eval of Restraint Date: 06/30/23 Face to Face Eval of Restraint Time: 02:15 <Jake Vera - Last Filed: 07/03/23 21:50> Medical Decision Making - Lab Data Result diagrams: 06/30/23 08:42 06/30/23 08:42 <Jake Kan - Last Filed: 06/30/23 14:03> - Lab Data Result diagrams: 06/30/23 08:42 07/01/23 12:46 <Lukas Jacques - Last Filed: 07/01/23 14:28> - Lab Data Result diagrams: 06/30/23 08:42 07/01/23 12:46 <Jake Vera - Last Filed: 07/03/23 21:50> - Medical Decision Making Was patient admitted / discharged? Hospital course, mention meds given and rou te, prescriptions, significant lab abnormalities, going to OR and other pertinent info. @ -Signed out to me by Dr. Vera. I went and reevaluated the patient she could make comments that she also was acting bizarre at times and not making any sense. EPS evaluated the patient and decided that the patient will be transferred to another facility with psych support. Undiagnosed new problem with uncertain prognosis? @ -No Drug Therapy requiring intensive monitoring for toxicity (Heparin, Nitro, Insulin, Cardizem)? @ -No Were any procedures done? @ -No Diagnosis/symptom? @ -Suicidal ideations Acute, or Chronic, or Acute on Chronic? @ -Acute Uncomplicated (without systemic symptoms) or Complicated (systemic symptoms)? @ -Complicated Side effects of treatment? @ -No Exacerbation, Progression, or Severe Exacerbation? @ -No Poses a threat to life or bodily function? How? (Chest pain, [place], [place], pneumonia, PE, COPD, DKA, ARF, appy, cholecystitis, CVA, Diverticulitis, Homicidal, Suicidal, threat to staff... and all critical care pts) @ -No Diagnosis/symptom? @ -Psychosis Acute, or Chronic, or Acute on Chronic? @ -Acute Uncomplicated (without systemic symptoms) or Complicated (systemic symptoms)? @ -Complicated Side effects of treatment? @ -none Exacerbation, Progression, or Severe Exacerbation] @ -no Poses a threat to life or bodily function? @ -no (Jake Kan) 40 female to the ER for evaluation. Patient has been the emergency department for 3 days now 3-4 days now. Patient was worse a petition for acute psychotic event although she is currently lucid baseline not homicidal or suicidal and feels well. Patient does have urinary tract infection will treat patient can be discharged home, patient is seen by psychiatry and psychologist and cleared from clinical cert and petition (Jake Vera) - Lab Data Lab Results 06/30/23 06/30/23 06/30/23 Range/Units 04:30 04:30 07:40 WBC (3.8-10.6) k/uL RBC (3.80-5.40) m/uL Hgb (11.4-16.0) gm/dL Hct (34.0-46.0) % MCV (80.0-100.0) fL MCH (25.0-35.0) pg MCHC (31.0-37.0) g/dL RDW (11.5-15.5) % Plt Count (150-450) k/uL MPV Neutrophils % % Lymphocytes % % Monocytes % % Eosinophils % % Basophils % % Neutrophils # (1.3-7.7) k/uL Lymphocytes # (1.0-4.8) k/uL Monocytes # (0-1.0) k/uL Eosinophils # (0-0.7) k/uL Basophils # (0-0.2) k/uL Sodium (137-145) mmol/L Potassium (3.5-5.1) mmol/L Chloride (98-107) mmol/L Carbon Dioxide (22-30) mmol/L Anion Gap mmol/L BUN (7-17) mg/dL Creatinine (0.52-1.04) mg/dL Est GFR (CKD-EPI)AfAm (>60 ml/min/1.73 sqM) Est GFR (CKD-EPI)NonAf (>60 ml/min/1.73 sqM) Glucose (74-99) mg/dL POC Glucose (mg/dL) 128 H (70-110) mg/dL POC Glu Edge Blacker ID Mitzi Kulkarni Calcium (8.4-10.2) mg/dL Magnesium (1.6-2.3) mg/dL Total Bilirubin (0.2-1.3) mg/dL AST (14-36) U/L ALT (4-34) U/L Alkaline Phosphatase (38-126) U/L Troponin I (0.000-0.034) ng/mL Total Protein (6.3-8.2) g/dL Albumin (3.5-5.0) g/dL TSH (0.465-4.680) mIU/L Free T4 (0.78-2.19) ng/dL Free T3 pg/mL (2.8-5.3) pg/ml Urine Color Yellow Urine Appearance Clear (Clear) Urine pH 6.0 (5.0-8.0) Ur Specific [place] 1.014 (1.001-1.035) Urine Protein 2+ H (Negative) Urine Glucose (UA) Negative (Negative) Urine Ketones Negative (Negative) Urine Blood Small H (Negative) Urine Nitrite Negative (Negative) Urine Bilirubin Negative (Negative) Urine Urobilinogen <2.0 (<2.0) mg/dL Ur Leukocyte Esterase Negative (Negative) Urine RBC 5 (0-5) /hpf Ur Squamous Epith Cells <1 (0-4) /hpf Urine Bacteria Many H (None) /hpf Urine Mucus Rare H (None) /hpf Urine Opiates Screen Not Detected (NotDetected) Ur Oxycodone Screen Not Detected (NotDetected) Urine Methadone Screen Not Detected (NotDetected) Ur Propoxyphene Screen Not Detected (NotDetected) Ur Barbiturates Screen Not Detected (NotDetected) U Tricyclic Antidepress Not Detected (NotDetected) Ur Phencyclidine Scrn Not Detected (NotDetected) Ur Amphetamines Screen Not Detected (NotDetected) U Methamphetamines Scrn Not Detected (NotDetected) U Benzodiazepines Scrn Not Detected (NotDetected) Urine Cocaine Screen Not Detected (NotDetected) U Marijuana (THC) Screen Detected H (NotDetected) Coronavirus (PCR) (Not Detectd) 06/30/23 06/30/23 06/30/23 Range/Units 08:42 08:42 14:55 WBC 13.6 H (3.8-10.6) k/uL RBC 5.05 (3.80-5.40) m/uL Hgb 14.6 (11.4-16.0) gm/dL Hct 42.5 (34.0-46.0) % MCV 84.0 (80.0-100.0) fL MCH 28.9 (25.0-35.0) pg MCHC 34.4 (31.0-37.0) g/dL RDW 14.2 (11.5-15.5) % Plt Count 357 (150-450) k/uL MPV 7.8 Neutrophils % 80 % Lymphocytes % 15 % Monocytes % 4 % Eosinophils % 0 % Basophils % 0 % Neutrophils # 10.9 H (1.3-7.7) k/uL Lymphocytes # 2.0 (1.0-4.8) k/uL Monocytes # 0.5 (0-1.0) k/uL Eosinophils # 0.1 (0-0.7) k/uL Basophils # 0.0 (0-0.2) k/uL Sodium 140 (137-145) mmol/L Potassium 3.9 (3.5-5.1) mmol/L Chloride 103 (98-107) mmol/L Carbon Dioxide 19 L (22-30) mmol/L Anion Gap 18 mmol/L BUN 12 (7-17) mg/dL Creatinine 0.45 L (0.52-1.04) mg/dL Est GFR (CKD-EPI)AfAm >90 (>60 ml/min/1.73 sqM) Est GFR (CKD-EPI)NonAf >90 (>60 ml/min/1.73 sqM) Glucose 132 H (74-99) mg/dL POC Glucose (mg/dL) (70-110) mg/dL POC Glu Edge Blacker ID Calcium 10.1 (8.4-10.2) mg/dL Magnesium (1.6-2.3) mg/dL Total Bilirubin 0.8 (0.2-1.3) mg/dL AST 29 (14-36) U/L ALT 45 H (4-34) U/L Alkaline Phosphatase 104 (38-126) U/L Troponin I (0.000-0.034) ng/mL Total Protein 8.6 H (6.3-8.2) g/dL Albumin 4.8 (3.5-5.0) g/dL TSH (0.465-4.680) mIU/L Free T4 (0.78-2.19) ng/dL Free T3 pg/mL (2.8-5.3) pg/ml Urine Color Urine Appearance (Clear) Urine pH (5.0-8.0) Ur Specific [place] (1.001-1.035) Urine Protein (Negative) Urine Glucose (UA) (Negative) Urine Ketones (Negative) Urine Blood (Negative) Urine Nitrite (Negative) Urine Bilirubin (Negative) Urine Urobilinogen (<2.0) mg/dL Ur Leukocyte Esterase (Negative) Urine RBC (0-5) /hpf Ur Squamous Epith Cells (0-4) /hpf Urine Bacteria (None) /hpf Urine Mucus (None) /hpf Urine Opiates Screen (NotDetected) Ur Oxycodone Screen (NotDetected) Urine Methadone Screen (NotDetected) Ur Propoxyphene Screen (NotDetected) Ur Barbiturates Screen (NotDetected) U Tricyclic Antidepress (NotDetected) Ur Phencyclidine Scrn (NotDetected) Ur Amphetamines Screen (NotDetected) U Methamphetamines Scrn (NotDetected) U Benzodiazepines Scrn (NotDetected) Urine Cocaine Screen (NotDetected) U Marijuana (THC) Screen (NotDetected) Coronavirus (PCR) Not Detected (Not Detectd) 07/01/23 07/01/23 07/01/23 Range/Units 12:30 12:46 12:46 WBC (3.8-10.6) k/uL RBC (3.80-5.40) m/uL Hgb (11.4-16.0) gm/dL Hct (34.0-46.0) % MCV (80.0-100.0) fL MCH (25.0-35.0) pg MCHC (31.0-37.0) g/dL RDW (11.5-15.5) % Plt Count (150-450) k/uL MPV Neutrophils % % Lymphocytes % % Monocytes % % Eosinophils % % Basophils % % Neutrophils # (1.3-7.7) k/uL Lymphocytes # (1.0-4.8) k/uL Monocytes # (0-1.0) k/uL Eosinophils # (0-0.7) k/uL Basophils # (0-0.2) k/uL Sodium 138 (137-145) mmol/L Potassium 4.0 (3.5-5.1) mmol/L Chloride 102 (98-107) mmol/L Carbon Dioxide 21 L (22-30) mmol/L Anion Gap 15 mmol/L BUN 12 (7-17) mg/dL Creatinine 0.54 (0.52-1.04) mg/dL Est GFR (CKD-EPI)AfAm >90 (>60 ml/min/1.73 sqM) Est GFR (CKD-EPI)NonAf >90 (>60 ml/min/1.73 sqM) Glucose 139 H (74-99) mg/dL POC Glucose (mg/dL) 142 H (70-110) mg/dL POC Glu Edge Blacker ID Rupali Chase Calcium 10.3 H (8.4-10.2) mg/dL Magnesium 1.6 (1.6-2.3) mg/dL Total Bilirubin (0.2-1.3) mg/dL AST (14-36) U/L ALT (4-34) U/L Alkaline Phosphatase (38-126) U/L Troponin I <0.012 (0.000-0.034) ng/mL Total Protein (6.3-8.2) g/dL Albumin (3.5-5.0) g/dL TSH 2.100 (0.465-4.680) mIU/L Free T4 1.45 (0.78-2.19) ng/dL Free T3 pg/mL 5.3 (2.8-5.3) pg/ml Urine Color Urine Appearance (Clear) Urine pH (5.0-8.0) Ur Specific [place] (1.001-1.035) Urine Protein (Negative) Urine Glucose (UA) (Negative) Urine Ketones (Negative) Urine Blood (Negative) Urine Nitrite (Negative) Urine Bilirubin (Negative) Urine Urobilinogen (<2.0) mg/dL Ur Leukocyte Esterase (Negative) Urine RBC (0-5) /hpf Ur Squamous Epith Cells (0-4) /hpf Urine Bacteria (None) /hpf Urine Mucus (None) /hpf Urine Opiates Screen (NotDetected) Ur Oxycodone Screen (NotDetected) Urine Methadone Screen (NotDetected) Ur Propoxyphene Screen (NotDetected) Ur Barbiturates Screen (NotDetected) U Tricyclic Antidepress (NotDetected) Ur Phencyclidine Scrn (NotDetected) Ur Amphetamines Screen (NotDetected) U Methamphetamines Scrn (NotDetected) U Benzodiazepines Scrn (NotDetected) Urine Cocaine Screen (NotDetected) U Marijuana (THC) Screen (NotDetected) Coronavirus (PCR) (Not Detectd) 07/02/23 07/03/23 Range/Units 00:44 15:22 WBC (3.8-10.6) k/uL RBC (3.80-5.40) m/uL Hgb (11.4-16.0) gm/dL Hct (34.0-46.0) % MCV (80.0-100.0) fL MCH (25.0-35.0) pg MCHC (31.0-37.0) g/dL RDW (11.5-15.5) % Plt Count (150-450) k/uL MPV Neutrophils % % Lymphocytes % % Monocytes % % Eosinophils % % Basophils % % Neutrophils # (1.3-7.7) k/uL Lymphocytes # (1.0-4.8) k/uL Monocytes # (0-1.0) k/uL Eosinophils # (0-0.7) k/uL Basophils # (0-0.2) k/uL Sodium (137-145) mmol/L Potassium (3.5-5.1) mmol/L Chloride (98-107) mmol/L Carbon Dioxide (22-30) mmol/L Anion Gap mmol/L BUN (7-17) mg/dL Creatinine (0.52-1.04) mg/dL Est GFR (CKD-EPI)AfAm (>60 ml/min/1.73 sqM) Est GFR (CKD-EPI)NonAf (>60 ml/min/1.73 sqM) Glucose (74-99) mg/dL POC Glucose (mg/dL) 145 H 136 H (70-110) mg/dL POC Glu Edge Blacker ID Kentrell, Pat Avalos Calcium (8.4-10.2) mg/dL Magnesium (1.6-2.3) mg/dL Total Bilirubin (0.2-1.3) mg/dL AST (14-36) U/L ALT (4-34) U/L Alkaline Phosphatase (38-126) U/L Troponin I (0.000-0.034) ng/mL Total Protein (6.3-8.2) g/dL Albumin (3.5-5.0) g/dL TSH (0.465-4.680) mIU/L Free T4 (0.78-2.19) ng/dL Free T3 pg/mL (2.8-5.3) pg/ml Urine Color Urine Appearance (Clear) Urine pH (5.0-8.0) Ur Specific [place] (1.001-1.035) Urine Protein (Negative) Urine Glucose (UA) (Negative) Urine Ketones (Negative) Urine Blood (Negative) Urine Nitrite (Negative) Urine Bilirubin (Negative) Urine Urobilinogen (<2.0) mg/dL Ur Leukocyte Esterase (Negative) Urine RBC (0-5) /hpf Ur Squamous Epith Cells (0-4) /hpf Urine Bacteria (None) /hpf Urine Mucus (None) /hpf Urine Opiates Screen (NotDetected) Ur Oxycodone Screen (NotDetected) Urine Methadone Screen (NotDetected) Ur Propoxyphene Screen (NotDetected) Ur Barbiturates Screen (NotDetected) U Tricyclic Antidepress (NotDetected) Ur Phencyclidine Scrn (NotDetected) Ur Amphetamines Screen (NotDetected) U Methamphetamines Scrn (NotDetected) U Benzodiazepines Scrn (NotDetected) Urine Cocaine Screen (NotDetected) U Marijuana (THC) Screen (NotDetected) Coronavirus (PCR) (Not Detectd) Disposition Time of Disposition: 14:07 <Jake Kan - Last Filed: 06/30/23 14:03> <Lukas Jacques - Last Filed: 07/01/23 14:28> Is patient prescribed a controlled substance at d/c from ED?: No Time of Disposition: 21:45 <Jake Vera - Last Filed: 07/03/23 21:50> Clinical Impression: Psychosis, UTI (urinary tract infection) Disposition: HOME SELF-CARE Condition: Fair Instructions (If sedation given, give patient instructions): Urinary Tract Infection in Women (ED), Brief Psychotic Disorder (ED) Referrals: More Jennings MD [Primary Care Provider] - 1-2 days
[2023-06-30] MEDS ORDERED: LORazepam 1 MG TAB PO STA (05:06)
[2023-06-30 05:16] LABS: Amphetamine Screen,Urine Not Detected (NotDetected); Barbiturate Screen,Urine Not Detected (NotDetected); Benzodiazepines Screen,Urine Not Detected (NotDetected); Cocaine Screen,Urine Not Detected (NotDetected); Methadone Screen, Urine Not Detected (NotDetected); Opiate Screen,Urine Not Detected (NotDetected); Oxycodone Screen, Urine Not Detected (NotDetected); Phencyclidine Screen,Urine Not Detected (NotDetected); Tricyclic Antidepressant,Urine Not Detected (NotDetected); Urn Cannabinoid Scrn Detected (NotDetected)
[2023-06-30 07:42] LABS: Glucose,Whole Blood 128 mg/dL (70-110)
[2023-06-30 08:50] LABS: Appearance,Urine Clear (Clear); Bacteria,Urine Many /hpf; Bilirubin,Urine Negative (Negative); Blood,Urine Small (Negative); Color,Urine Yellow; Glucose,Urine (UA) Negative (Negative); Ketones,Urine Negative (Negative); Leukocyte Esterase,Urine Negative (Negative); Mucus,Urine Rare /hpf; Nitrite,Urine Negative (Negative); Protein,Urine 2+ (Negative); RBC,Urine 5 /hpf (0-5); Specific Gravity,Urine 1.014 (1.001-1.035); Squamous Epithelial Cell,Urine <1 /hpf (0-4); Urobilinogen,Urine <2.0 mg/dL (<2.0)
[2023-06-30 09:03] LABS: Basophils % (A) 0 %; Eosinophils # (A) 0.1 k/uL (0-0.7); Eosinophils % (A) 0 %; HCT 42.5 % (34.0-46.0); HGB 14.6 gm/dL (11.4-16.0); Lymphocytes % (A) 15 %; MCH 28.9 pg (25.0-35.0); MCHC 34.4 g/dL (31.0-37.0); Mean Platelet Volume 7.8; Monocytes # (A) 0.5 k/uL (0-1.0); Monocytes % (A) 4 %; Neutrophils # (A) 10.9 k/uL (1.3-7.7); Neutrophils % (A) 80 %; Platelet Count 357 k/uL (150-450); RBC 5.05 m/uL (3.80-5.40); RDW 14.2 % (11.5-15.5); WBC 13.6 k/uL (3.8-10.6)
[2023-06-30 09:13] LABS: ALT 45 U/L (4-34); AST 29 U/L (14-36); African American GFR (CKD) >90 (>60 ml/min/1.73 sqM); Albumin 4.8 g/dL (3.5-5.0); Alkaline Phosphatase 104 U/L (38-126); Anion Gap 18 mmol/L; Blood Urea Nitrogen 12 mg/dL (7-17); Calcium 10.1 mg/dL (8.4-10.2); Carbon Dioxide 19 mmol/L (22-30); Chloride 103 mmol/L (98-107); Glucose 132 mg/dL (74-99); Non-African American GFR(CKD) >90 (>60 ml/min/1.73 sqM); Potassium 3.9 mmol/L (3.5-5.1); Sodium 140 mmol/L (137-145); Total Bilirubin 0.8 mg/dL (0.2-1.3); Total Protein 8.6 g/dL (6.3-8.2)
[2023-06-30] MEDS ORDERED: cefTRIAXone IN SWFI 1,000 MG/10 ML SYRINGE IVP STA (09:26)
[2023-07-01 12:36] LABS: Glucose,Whole Blood 142 mg/dL (70-110)
[2023-07-01] MEDS ORDERED: LORazepam 2 MG/ML INJ IV STA (12:39)
[2023-07-01] MEDS ORDERED: SODIUM CHLORIDE 0.9% 1,000 ML IV STA (13:32)
[2023-07-01 13:44] LABS: African American GFR (CKD) >90 (>60 ml/min/1.73 sqM); Anion Gap 15 mmol/L; Blood Urea Nitrogen 12 mg/dL (7-17); Calcium 10.3 mg/dL (8.4-10.2); Carbon Dioxide 21 mmol/L (22-30); Chloride 102 mmol/L (98-107); Glucose 139 mg/dL (74-99); Magnesium 1.6 mg/dL (1.6-2.3); Non-African American GFR(CKD) >90 (>60 ml/min/1.73 sqM); Sodium 138 mmol/L (137-145)
[2023-07-01 14:02] LABS: T4, Free (Free Thyroxine) 1.45 ng/dL (0.78-2.19)
[2023-07-02] MEDS ORDERED: LORazepam 1 MG TAB PO STA (00:34)
[2023-07-02 00:46] LABS: Glucose,Whole Blood 145 mg/dL (70-110)
[2023-07-03] MEDS ORDERED: NON FORMULARY DRUG (Rimegepant Sulfate [Nurtec Odt] 75 MG Tablet) PO PRN (00:56)
[2023-07-03] MEDS ORDERED: BACLOFEN 10 MG TAB PO PRN ×2 (00:56→10:48)
[2023-07-03] MEDS ORDERED: cloNIDine HCL 0.1 MG TAB PO PRN ×2 (00:56→10:49)
[2023-07-03] MEDS ORDERED: LORazepam 1 MG TAB PO STA (02:50)
[2023-07-03] MEDS ORDERED: LORazepam 1 MG TAB PO ONE (05:30)
[2023-07-03] MEDS ORDERED: LEVOTHYROXINE 88 MCG TAB PO SCH ×2 (09:00→11:00)
[2023-07-03] MEDS ORDERED: CHOLECALCIFEROL 125 MCG (5000 IU) TABLET PO SCH ×2 (09:00→11:00)
[2023-07-03] MEDS ORDERED: SERTRALINE 100 MG TAB PO SCH ×2 (09:00→11:00)
[2023-07-03] MEDS ORDERED: MAGNESIUM OXIDE 400 MG TAB PO SCH ×2 (09:00→11:00)
[2023-07-03] MEDS ORDERED: metFORMIN 500 MG TAB PO SCH (09:00)
[2023-07-03] MEDS: metFORMIN 500 MG TAB PO SCH ×2 (11:03→20:40)
[2023-07-03 15:28] LABS: Glucose,Whole Blood 136 mg/dL (70-110)
[2023-07-03 19:21] VITALS: TEMP 98.1
[2023-07-03] MEDS ORDERED: AMOXIC-POT CLAV 875MG STARTER PACK 2 TAB BTL PO STA (21:44)
[2023-07-03] MEDS ORDERED: AMOXIC-POT CLAV 875-125MG 1 EACH TAB PO STA (21:44)
[2023-07-03] MEDS ORDERED: cefTRIAXone 250 MG VIAL IM STA (21:44)
[2023-07-03 22:21] VITALS: BP 138/77; PULSE 87; RESP 16
== END 2023-07-03 22:13 | disposition home or self-care (01) ==
LOC: EC 01:50
DX: F29 Unspecified psychosis not due to a substance or known physiological condition (principal); N39.0 Urinary tract infection, site not specified; R00.0 Tachycardia, unspecified; B96.20 Unspecified Escherichia coli [E. coli] as the cause of diseases classified elsewhere; E11.9 Type 2 diabetes mellitus without complications; F32.A Depression, unspecified; F41.9 Anxiety disorder, unspecified; J45.909 Unspecified asthma, uncomplicated; E07.9 Disorder of thyroid, unspecified; F12.90 Cannabis use, unspecified, uncomplicated; Z20.822 Contact with and (suspected) exposure to COVID-19; Z79.890 Hormone replacement therapy; Z79.84 Long term (current) use of oral hypoglycemic drugs; Z79.899 Other long term (current) drug therapy; Z88.8 Allergy status to other drugs, medicaments and biological substances; Z90.49 Acquired absence of other specified parts of digestive tract; Z87.891 Personal history of nicotine dependence
CPT/HCPCS: 82075; 36415 ×3; 84439; 84481; 80053; 80048; 83735; 84443; 84484; 85025; 81001; 87040; 80306; 87086; 87077; 87186; 87635; 99285; 96374; 96375; J2060; J0696

== ENCOUNTER → 2024-03-10 | Outpatient (CLI) | payer OTHER ==
[2024-03-10 19:20] LABS: HCT 40.4 % (37.2-46.3); HGB 13.6 g/dL (12.0-15.0); MCHC 33.7 g/dL (32.0-37.0); MCV 86.1 FL (80.0-97.0); Mean Platelet Volume 10.5 FL (9.5-12.2); NRBC Per 100 WBC 0 X 10*3/uL (0.00-0.01); Platelet Count 250 X 10*3/uL (140-440); RBC 4.69 X 10*6/uL (4.10-5.20); RDW 13.7 % (11.5-14.5); WBC 8.55 X 10*3/uL (4.50-10.00)
[2024-03-10 19:53] LABS: ALT 27 U/L (8-44); AST 24 U/L (13-35); Albumin 4.6 g/dL (3.8-4.9); Albumin/Globulin Ratio 1.59 Ratio (1.60-3.17); Alkaline Phosphatase 89 U/L (41-126); BUN/Creat Ratio 22.71 Ratio (12.00-20.00); Blood Urea Nitrogen 15.9 mg/dL (9.0-27.0); Calcium 9.7 mg/dL (8.7-10.3); Carbon Dioxide 23.2 mmol/L (21.6-31.8); Chloride 99 mmol/L (96-109); Chol/HDL Ratio 6.37 Ratio; Globulin 2.9 g/dL (1.6-3.3); Glucose 80 mg/dL (70-110); Potassium 4.4 mmol/L (3.5-5.5); Sodium 138 mmol/L (135-145); Total Bilirubin 0.4 mg/dL (0.3-1.2); Total Protein 7.5 g/dL (6.2-8.2)
[2024-03-10 20:32] LABS: Gliadin AB IgA, Deaminated Negative (Negative); Gliadin AB IgA, Unit <0.5 U/mL; Gliadin AB IgG, Deaminated Negative (Negative); Gliadin AB IgG, Unit <0.4 U/mL
[2024-03-10 23:11] LABS: Clam IgE <0.10 kU/L; Codfish IgE <0.10 kU/L; Egg White IgE <0.10 kU/L; Peanut IgE <0.10 kU/L; Scallop IgE <0.10 kU/L; Shrimp IgE <0.10 kU/L; Soybean IgE <0.10 kU/L; Walnut IgE (Food) <0.10 kU/L
== END | disposition home or self-care (01) ==
LOC: LABWHC1 13:00
PROVIDERS: ATTEND Family Medicine
DX: E11.9 Type 2 diabetes mellitus without complications (principal); E78.5 Hyperlipidemia, unspecified; E65 Localized adiposity; E88.810 Metabolic syndrome; R10.9 Unspecified abdominal pain
CPT/HCPCS: 36415; 80053; 80061; 82785; 83036; 83516; 83721; 84443; 85027; 86003

== ENCOUNTER → 2024-03-12 | Outpatient (CLI) | payer OTHER ==
[2024-03-19 05:07] LABS: Free Cortisol 24 Hour,Urine 5.2 ug/day (<45.0)
== END | disposition home or self-care (01) ==
LOC: LABWHC1 10:23
PROVIDERS: ATTEND Family Medicine
DX: E65 Localized adiposity (principal); E88.810 Metabolic syndrome
CPT/HCPCS: 82530

== ENCOUNTER → 2024-03-14 | Outpatient (CLI) | payer OTHER ==
[2024-03-14 11:36] LABS: African American GFR (CKD) >90 (>60 ml/min/1.73 sqM); Blood Urea Nitrogen 15 mg/dL (7-17); Non-African American GFR(CKD) >90 (>60 ml/min/1.73 sqM)
--- NOTE | 2024-03-14 13:23 | CT ---
EXAMINATION TYPE: CT abdomen pelvis w con DATE OF EXAM: 03/14/2024 COMPARISON: 11/05/2021 HISTORY: lower abdominal pain x1 month. recent weight loss CT DLP: 1813 mGycm CONTRAST: CT scan of the abdomen and pelvis is performed with Oral Contrast and with IV Contrast, patient injec sri with 100ml mL of Isovue 300. FINDINGS: LUNG BASES-: No visible nodule. No infiltrate. LIVER/GB: The gallbladder is surgically absent. No space occupying hepatic lesion. Biliary tree is of normal caliber. PANCREAS: No inflammation. No distinct mass. SPLEEN: No splenic enlargement. No lesion seen. ADRENALS: No nodule. No thickening. KIDNEYS/BLADDER: No hydronephrosis. Bilateral nonobstructing nephrolithiasis. 2 calculi are seen wit hin the right kidney the largest of the which measures 9 mm. The left kidney demonstrates approximate ly 3 calculi the largest of which measures 8 mm. No distinct renal mass. Urinary bladder grossly unr emarkable. BOWEL: Normal appendix. Normal bowel caliber. No inflammation. GENITAL ORGANS: Hysterectomy changes seen. No evidence for vaginal cuff or adnexal mass. LYMPH NODES: No greater than 1cm abdominal or pelvic lymph nodes are appreciated. AORTA: No significant abnormality. OSSEOUS STRUCTURES: No significant abnormality is seen. OTHER: No significant additional abnormality is seen. IMPRESSION: 1. Nonobstructing nephrolithiasis. 2. No significant abnormality to account for the patient's symptoms at this time.
== END | disposition home or self-care (01) ==
LOC: RADCTMAIN 10:52
PROVIDERS: ATTEND Family Medicine
DX: N20.0 Calculus of kidney (principal); Z98.890 Other specified postprocedural states
CPT/HCPCS: 82565; 84520; 74177; Q9967